=== PATIENT | female | born 1980 | race Caucasian/White ===

== ENCOUNTER 2024-11-08 08:30 | Outpatient (REF) | payer MEDICAID, SELFPAY ==
--- OUTSIDE RECORDS SUMMARY | 2024-11-07 17:00 | XMS_ITS | Encounter Summary ---
Author Organization [employer] Address [address] [facility] 7[address] [place] [address] Care Team Providers Care Noodle Maker Name Role Phone Unavailable Primary Care Provider Unavailabl e Encounter Details Date Type Department Care Team (Late st Contact Info) Description 11/07/2024 5:00 PM EDT Office Visit [facility] [address] [place] [address] Felicia Jack FNP [address] [place] [address] Pain and swelling of right elbow (Primary Dx); Dizziness; Palpitations Social History Tobacco Use Types Packs/Day Years Used Date Smoking Tobacco: Every Day Cigarettes 0.5 24.7 Started: 2000 Smokeless Tobacco: Never Tobacco Cessation:Ready to Q uit: Yes; Counseling Given: Yes Alcohol Use Standard Drinks/Week Comments Never 0 (1 standard drink = 0.6 oz pur e alcohol) Comments Unknown Sex and Gender Information Value Date Recorded Sex Assigned at Female 04/20/2023 9:20 AM EST Legal Sex Female 9:17 AM EST Gender Identity Female 04/20/2023 9:20 AM EST Sexual Orientation Choose not to disclose 2023 9:20 AM EST documented as of this encounter Last Filed Vital Signs Vital Sign Reading Time Taken Comments Blood Pressure 135/85 11/07/2024 4:48 PM EDT Pulse 76 11/07/2024 4:48 PM EDT Temperature 36.9 C (98.5 F) 11/07/2024 4:48 PM EDT Respiratory Rate 18 11/07/2024 4:48 PM EDT Oxygen Saturation 99% 11/07/2024 4:48 PM EDT Inhaled Oxygen Concentration - - Weight 45.5 kg (100 lb 6.4 oz) 11/07/2024 4:48 P M EDT Height 167.6 cm (5' 6 ) 11/07/2024 4:48 PM EDT Body Mass Index 16.2 11/07/2024 4:48 PM EDT documented in this encounter Progress Notes * Therese Holder RN - 11/07/2024 5:00 PM EDT Nurse Triage note: Pt arrives to walk in [place], states she has had dizzy spells x 3 weeks, accompanied by nausea and blurry vision. Also decreased appetite x several weeks. Last week, pt fell on herright arm during one of these spells, states she was in [place] visiting family at that time. States shewas seen in ED in [place], no Xrays taken of arm. * PETER Tabares - 11/07/2024 5:00 PM EDT Subjective Patient ID: Ashtyn Reyes is a 44 y.o. female. Ashtyn reports she was in [place] visiting her brother around 2 weeks ago. While there, she became dizzy, lost balance, her vision went blurry / fuzzy and she fell. After she fell, she hit her R elbow on her brother's kitchen chair. She is unsure if she had LOC. Since that time, she has been having pain, tingling and loss of ROM. She reports she had some swelling and bruising which has since resolved. She went to the hospital in [place] and had some blood work. She currently does not have a PCP and last seen by a medical provider was her ob-public policy professor 06/2024. She continues to have on and off dizziness, sometimes she feels her lip tingling. She reports she lost 20 lbs within the last month. She reports feeling shaky, getting sweaty, heart palpitations and dizziness which all come and go. Reports was told her H&H was low and she used to get Vit B shots which she felt were helpful. Denies recent head or neck trauma, no new medications, reports decreased appetite. Reports headacheafter dizziness and has nausea several times daily. Denies any chronic medical conditions. Dizziness Quality: Lightheadedness, vertigo, imbalance and room spinning Severity: Mild Onset quality: Sudden Duration: 2 weeks Timing: Intermittent Progression: Unchanged Chronicity: New Context: not with loss of consciousness Worsened by: Nothing Ineffective treatments: None tried Associated symptoms: diarrhea, nausea, palpitations and syncope Associated symptoms: no chest pain and no hearing loss Nausea: Severity: Mild Onset quality: Gradual Duration: 6 months Timing: Intermittent Progression: Waxing and waning Risk factors: no heart disease, no hx of stroke, no hx of vertigo, no multiple medications and no new medications Review of Systems Constitutional: Positive for appetite change, fatigue and unexpected weight change. Negative for fever. HENT: Negative for congestion, facial swelling, hearing loss, rhinorrhea, sinus pressure, sinus pain, sore throat and trouble swallowing. Eyes: Positive for visual disturbance. Negative for photophobia, pain, discharge, redness and itching. Respiratory: Negative. Cardiovascular: Positive for palpitations and syncope. Negative for chest pain. Gastrointestinal: Positive for constipation, diarrhea and nausea. Endocrine: Positive for cold intolerance. Negative for heat intolerance. Genitourinary: Negative. Musculoskeletal: Positive for joint swelling. Skin: Negative. Neurological: Positive for dizziness, tremors and syncope. Negative for facial asymmetry. Objective BP 135/85 (BP Cuff Size: Adult) Pulse 76 Temp 98.5 ??F (36.9 ??C) (Oral) Resp 18 Ht 5' 6 (1.676 m) Wt 100 lb 6.4 oz (45.5 kg) SpO2 99% BMI 16.20 kg/m?? Physical Exam Constitutional: Appearance: Normal appearance. HENT: Head: Normocephalic. Right Ear: External ear normal. Left Ear: External ear normal. Nose: Nose normal. Mouth/Throat: Mouth: Mucous membranes are moist. Eyes: Conjunctiva/sclera: Conjunctivae normal. Cardiovascular: Rate and Rhythm: Normal rate and regular rhythm. Heart sounds: Normal heart sounds. Pulmonary: Effort: Pulmonary effort is normal. Breath sounds: Normal breath sounds. Musculoskeletal: Right elbow: Swelling present. Decreased range of motion. Tenderness present. Left elbow: Normal. Cervical back: Normal range of motion and neck supple. Skin: General: Skin is warm and dry. Capillary Refill: Capillary refill takes less than 2 seconds. Neurological: Mental Status: She is alert and oriented to person, place, and time. Psychiatric: Mood and Affect: Mood normal. Behavior: Behavior normal. Thought Content: Thought content normal. Judgment: Judgment normal. Assessment/Plan Diagnoses and all orders for this visit: Pain and swelling of right elbow - XR Elbow 3+ Views Right; Future Plan pending results Dizziness Sit or lie down if start to feel dizzy Use a cane or walker to help balance if needed. Avoid changing positions quickly. When you wake up, sit up first, then get out of bed slowly. Ensure adequate food / fluid intake RTC if sx persist or worsen Please schedule for New Patient Appointment - Hemoglobin A1c - Ferritin; Future - Iron And Total Iron Binding Capacity; Future Palpitations EKG today - WNL Sinus rhythm P/NC: 94/170 ms QRS: 80 ms QT/Qtc: 396/372 ms P/QRS/T axis: 140/142/145 deg Heart rate: 53 bpm Red Flag symptoms reviewed RTC if sx persist or worsen - TSH W/Reflex to FT4; Future - T3, Total; Future - CBC auto differential - Vitamin D, 25-Hydroxy, Total, Immunoassay; Future - Albumin, Random Urine W/Creatinine; Future - Comprehensive Metabolic Panel; Future - ECG 12 lead - Ferritin; Future - Iron And Total Iron Binding Capacity; Future Other orders - acetaminophen (Tylenol Extra Strength) 500 MG tablet; Take 2 tablets (1,000 mg) by mouth every 6 (six) hours if needed for headaches, fever or moderate pain for up to 10 days. documented in this encounter Plan of Treatment Scheduled Orders Name Type Priority Associated Diagnoses Orde r Schedule Hemoglobin A1c Lab Routine Dizziness Ordered: 11/07/2024 TSH W/Reflex to FT4 Lab Routine Palpitations Expected: 11/07/2024 (Approximate), Expires: 11/07/2025 T3, Total Lab Routine Palpitations Expected: 11/07/2024 (Approximate), Expires: 11/07/2025 CBC auto differential Lab Routine Palpitations Ordered: 11/07/2024 Vitamin D, 25-Hydroxy, Total, Immunoassay Lab Routine Palpitations Expected: 11/07/2024 (Approximate), Expires: 11/07/2025 Albumin, Random Urine W/Creatinine Lab Routine Palpitations Expected: 11/07/2024 (Approximate), Expires: 11/07/2025 Comprehensive Metabolic Panel Lab Routine Palpitations Expected: 11/07/2024 (Approximate), Expires: 11/07/2025 ECG 12 lead ECG Routine Palpitations Ordered: 11/07/2024 Ferritin Lab Routine Dizziness Palpitations Expected: 11/07/2024, Expires: 11/07/2025 Iron And Total Iron Binding Capacity Lab Routine Dizziness Palpitations Expected: 11/07/2024, Expires: 11/07/2025 documented as of this encounter Procedures Procedure Name Priority Date/Time Associated Diagnosis Comments XR ELBOW 3+ VIEWS RIGHT Routine 11/08/2024 9:00 AM EDT Pain and swelling of right elbow ECG 12-LEAD Routine 11/07/2024 7:00 PM EDT Dizziness Palpitations documented in this encounter Results * XR Elbow 3+ Views Right (11/08/2024 9:00 AM EDT) Anatomical Region Laterality Modality Upper Extremities, Elbow Right Radiogr aphic Imaging 11/08/2024 9:00 AM EDT Narrative 11/08/2024 9:21 AM EDT [place] [address] XRay Report Signed Patient: Ashtyn Reyes MR#: [id number] : 1980 Acct:[id number] Age/Sex: 44 / F ADM Date: 11/08/24 Loc: HO.[facility] Attending Dr: Felicia Jack NP Ordering Physician: Felicia Jack NP Date of Service: 11/08/24 Procedure(s): XR elbow RT min 3V Accession Number(s): [id number] cc: Felicia Jack NP Reason for Exam: s/p fall, increase pain and loss of ROM EXAMINATION: XR ELBOW, RIGHT CLINICAL INFORMATION: s/p fall, increase pain and loss of ROM COMPARISON: None available. TECHNIQUE: AP, lateral, and oblique views of the right elbow. FINDINGS: The bones and soft tissues are normal. No fracture or joint effusion. Alignment is anatomic. Joint spaces are maintained. XR/XR elbow RT min 3V IMPRESSION: Normal right elbow. Electronically signed by: Yoandy Phillips MD 11/08/2024 09:18 AM EDT RP Dictated By: Yoandy Phillips MD Signed By: <Electronically signed by Yoandy Phillips MD in OV> 11/08/24917 DD/ 9 TD/TT: 11/08/24909 Radiography Technician: Procedure Note Donotuseinterpreter, Image - 11/08/[address] [address] XRay Report Signed Patient: Ashtyn ReyesMR#: [id number] : 1980Acct:[id number] Age/Sex: 44 / FADM Date: 11/08/24 Loc: [facility] Attending Dr: Felicia Jack AMBULANCE ASSISTANT Ordering Physician: Felicia Jack NP Date of Service: 11/08/24 Procedure(s): XR elbow RT min 3V Accession Number(s): [id number] cc: Felicia Jack NP Reason for Exam: s/p fall, increase pain and loss of ROM EXAMINATION: XR ELBOW, RIGHT CLINICAL INFORMATION: s/p fall, increase pain and loss of ROM COMPARISON: None available. TECHNIQUE: AP, lateral, and oblique views of the right elbow. FINDINGS: The bones and soft tissues are normal. No fracture or joint effusion. Alignment is anatomic. Joint spaces are maintained. XR/XR elbow RT min 3V IMPRESSION: Normal right elbow. Electronically signed by: Yoandy Phillips MD 11/08/2024 09:18 AM EDT RP Dictated By: Yoandy Phillips MD Signed By: <Electronically signed by Yoandy Phillips MD in OV> 11/08/24917 DD/ 9 TD/TT: 11/08/24909 Radiography Technician: Felciia Jack HEELER IMG XR PROCEDURES Final Result * ECG 12 lead (11/07/2024 7:00 PM EDT) Felicia Martinez FNP - 11/07/2024 7:00 PM EDT Sinus rhythm P/NC: 94/170 ms QRS: 80 ms QT/Qtc: 396/372 ms P/QRS/T axis: 140/142/145 deg Heart rate: 53 bpm Felicia GREEN ECG ORDERABLES Final Result documented in this encounter Visit Diagnoses Diagnosis Pain and swelling of right elbow- Primary Dizziness Dizziness and giddiness Palpitations documented in this encounter
--- NOTE | ~2024-11-08 | XR_ITS ---
EXAMINATION: XR ELBOW, RIGHT CLINICAL INFORMATION: s/p fall, increase pain and loss of ROM COMPARISON: None available. TECHNIQUE: AP, lateral, and oblique views of the right elbow. FINDINGS: The bones and soft tissues are normal. No fracture or joint effusion. Alignment is anatomic. Joint spaces are maintained. XR/XR elbow RT min 3V IMPRESSION: Normal right elbow. Electronically signed by: Yoandy Phillips MD 11/08/2024 09:18 AM EDT
--- OUTSIDE RECORDS SUMMARY | 2024-11-08 09:29 | XMS_ITS | Encounter Summary ---
Author Organization [employer] Address [address] [facility] 7t [place] [address] Care Team Providers Care Still Operator Gin Name Role Phone Unavailable Primary Care Provider Unavailabl e Encounter Details Date Type Department Care Team (Latest Contact Info) Description 11/07/2024 Travel Social History Tobacco Use Types Packs/Day Years Used Date Smoking Tobacco: Every Day Cigarettes 0.5 24.7 Started: 2000 Smokeless Tobacco: Never Alcohol Use Standard Drinks/Week Comments Never 0 (1 standard drink = 0.6 oz pur e alcohol) Comments Unknown Sex and Gender Information Value Date Recorded Sex Assigned at Female 04/20/2023 9:20 AM EST Legal Sex Female 9:17 AM EST Gender Identity Female 04/20/2023 9:20 AM EST Sexual Orientation Choose not to disclose 2023 9:20 AM EST documented as of this encounter Plan of Treatment Not on file documented as of this encounter Visit Diagnoses Not on filedocumented in this encounter
--- OUTSIDE RECORDS SUMMARY | 2024-11-08 09:29 | XMS_ITS | Clinical Summary ---
Author Organization [employer] Address [address] [facility] [address] [place] [address] Care Team Providers Care Vp Care Management Name Role Phone Unavailable Primary Care Provider Unavailabl e Allergies Active Allergy Reactions Criticality Noted Date Comments Amoxicillin Hives 11/07/2024 Codeine 01/04/2021 Penicillins 11/07/2024 Oxycodone-Acetaminophen 11/07/2024 Medications acetaminophen (Tylenol Extra Strength) 500 MG tablet Take 2 tablets (1,000 mg) by mouth every 6 (six) hours if needed for headaches, fever or moderate pain for up to 10 days. 30 tablet 11/07/2024 11/18/19 25 Active Encounters Date Type Department Care Team Description 11/07/2024 5:00 PM EDT Office Visit [facility] [address] [place] [id number] Felicia Jack FNP Pain and swelling of right elbow (Primary Dx); Dizziness; Palpitations 11/07/2024 Travel from Last 3 Months Social History Tobacco Use Types Packs/Day Years [...] not to disclose 2023 9:20 AM EST Last Filed Vital Signs Vital Sign Reading [...] Mass Index 16.2 11/07/2024 4:48 PM EDT Plan of Treatment Health Maintenance Due Date Last Done Comments Depression Screening 1980 HIV Screening 1980 Lipid Panel 1980 SDOH Screening 1982 Disability Screening 1982 Alcohol/Substance Use Screening 1994 Family Planning (PISQ) 1997 HPV Vaccines (1 - 3-dose series) 1997 Hepatitis C Screening 2000 DTaP/Tdap/Td Vaccines (1 - Tdap) 2001 Hepatitis B Vaccines (1 of 3 - 19+ 3-dose series) 2001 Pneumococcal Vaccine: Pediat rics (0 to 5 Years) and At-Risk Patients (6 to 49) Years (1 of 2 - PCV) 2001 Pap Smear 06/26/2003 Cervical Cancer Screening 2012 HPV/Cotest 2012 Mammogram 2022 COVID-19 Vaccine ( - 2023-2 5 season) 2024 Influenza Vaccine (#1) 2024 Tobacco Screening 11/07/2025 11/07/2024 Zoster Vaccines (1 of 2) 2032 RSV Patients and Pa tients Aged 60 years or older (1 - 1-dose 75+ series) 2057 HIB Vaccines Aged Out No longer eligi ble based on patient's age to complete this topic Hepatitis A Vaccines Aged Out No long er eligible based on patient's age to complete this topic IPV Vaccines Aged Out No longer eligi ble based on patient's age to complete this topic Meningococcal B Vaccine Aged Out No l onger eligible based on patient's age to complete this topic Meningococcal Vaccine Aged Out No pattie rebeka eligible based on patient's age to complete this topic RSV under 20 months Aged Out No longe r eligible based on patient's age to complete this topic Rotavirus Vaccines Aged Out No longer eligible based on patient's age to complete this topic Procedures Procedure Name Priority Date/Time Associated Diagnosis Comments XR ELBOW 3+ VIEWS RIGHT Routine 11/08/2024 9:00 AM EDT Pain and swelling of right elbow ECG 12-LEAD Routine 11/07/2024 7:00 PM EDT Dizziness Palpitations from Last 3 Months Results * XR Elbow 3+ Views Right (11/08/2024 9:00 AM EDT) Anatomical Region Laterality Modality Upper Extremities, Elbow Right Radiogr aphic Imaging 11/08/2024 9:00 AM EDT Narrative 11/08/2024 9:21 AM EDT [place] [address] XRay Report Signed Patient: Ashtyn Reyes MR#: [id number] : 1980 Acct:[id number] Age/Sex: 44 / F ADM Date: 11/08/24 Loc: HO.CL Attending Dr: Felicia Jack NP Ordering Physician: Felicia Jack NP Date of Service: 11/08/24 Procedure(s): XR elbow RT min 3V Accession Number(s): [id number] cc: Felicia Jack NP Reason for Exam: [...] Yoandy Phillips MD 11/08/2024 09:18 AM EDT Dictated By: Yoandy Phillips MD Signed By: <Electronically signed by Yoandy Phillips MD in OV> 11/08/24917 DD/ 9 TD/TT: 11/08/24909 Shearing Supervisor: Procedure Note Brandon, Image - 11/08/[address] [address] XRay Report Signed Patient: Ashtyn ReyesMR#: [id number] : 1980Acct:[id number] Age/Sex: 44 / FADM Date: 11/08/24 Loc: HO[facility] Attending Dr: Felicia Jack STAMP PRESSER Ordering Physician: Felicia Jack NP Date of Service: 11/08/24 Procedure(s): XR elbow RT min 3V Accession Number(s): [id number] cc: Felicia Jack NP Reason for Exam: [...] in OV> 11/08/24917 DD/ 9 TD/TT: 11/08/24909 Shearing Supervisor: Felicia GREEN IMG XR PROCEDURES Final Result * ECG 12 lead (11/07/2024 7:00 PM EDT) Narrative Felicia Jack FNP - 11/07/2024 7:00 PM EDT Sinus rhythm P/PA: 94/170 ms QRS: 80 ms QT/Qtc: 396/372 ms P/QRS/T axis: 140/142/145 deg Heart rate: 53 bpm Felicia Jack LABOR MEDIATOR ECG ORDERABLES Final Result from Last 3 Months Insurance [facility] [id number]
--- OUTSIDE RECORDS SUMMARY | 2024-11-08 09:30 | XMS_ITS | Clinical Summary ---
Author Organization [facility] Address [address] [place] [address] Phone Care Team Providers Care Diesel Technician Mechanic Name Role Phone Rajendra Cast Primary Care Provider [phone] Social History Tobacco Use Types Packs/Day Years Used Date Smoking Tobacco: Never Assessed Comments Unknown Sex and Gender Information Value Date Recorded Sex Assigned at Female 01/26/2020 10:49 AM EST Legal Sex Female 10:40 AM EST Gender Identity Female 01/26/2020 10:49 AM EST Sexual Orientation Straight 01/26/2020 10 :49 AM EST Plan of Treatment Not on file Medical Devices Not on file Insurance [facility] PCC [facility] PCC Care Teams Diesel Technician Mechanic Relationship Specialty Start Date End Date Rajendra Cast DO [address] [place] [id number] PCP - General Internal Medicine 01/26/20 Additional Source Comments The information contained in this document represents components of the legal health record. It is not the complete legal health record.[facility]
--- OUTSIDE RECORDS SUMMARY | 2024-11-08 09:30 | XMS_ITS | Patient Health Record ---
Author Organization [facility] Address [address] [place] [address] Support Name Relationship Address Phone SergeAshtyn Guarantor Unknown Unavai lable Allergies No Known Allergies Reason For Referral No Information Social History Tobacco Use: Social History Observation Description Date Details (start date - stop date) Never Smoker NA - NA Tobacco Control (Standard) Question Answer Notes Tobacco use: Nonsmoker Plan Of Treatment No Information Insurance Providers Payer Name Payer Address Payer Phone Subscriber Number Group Number Insured Name Patient Relationship to Insured Coverage Start Date Coverage End Date [employer] [address] [place] [address] [phone] [id number] Shefali wilburn Ashtyn Self - patient is the insured Medical (General) History Medical History History ICD Code denies Surgical History Surgery Date(Month/Year) Appendix 06/01/2023 Hospitalization History Reason Date(Month/Year) see above
--- OUTSIDE RECORDS SUMMARY | 2024-11-08 09:30 | XMS_ITS | Clinical Summary ---
Author Organization [facility] [address] [place] [address] [place] [address] Phone Care Team Providers Care Stitch Bonding Machine Operator Name Role Phone Vijay Wheatley MD Primary Care Provider [phone] Allergies Active Allergy Reactions Criticality Noted Date Comments Codeine 01/04/2021 Hydrocodone-Acetaminophen 01/22/2021 Penicillins 01/22/2021 Medications No known medications Active Problems Problem Noted Date Diagnosed Date Spondylosis of lumbar region without myelopathy or radiculopathy 06/26/2023 Severe malnutrition (CMS/HCC V24) 02/04/2023 Irritable bowel syndrome 01/31/2022 Malnutrition (CMS/HCC V24) 01/31/2022 Stress headache 01/31/2022 Tendinitis of left rotator cuff 01/31/2022 PTSD (post-traumatic stress disorder) 01/22/2021 Bipolar depression (CMS/HCC V24, CMS/HCC V28) Chronic low back pain 01/22/2021 Insomnia 01/22/2021 Anxiety and depression 01/04/2021 Constipation 01/04/2021 GERD (gastroesophageal reflux disease) Gastroparesis 01/04/2021 Overview (02/04/2024): Unclear etiology dx in [place] Decreased appetite 01/04/2021 Rotator cuff disorder, left 01/04/2021 Unintentional weight loss 01/04/2021 Encounters Date Type Department Care Team Description 08/08/2024 Telephone Adult Medicine [facility] [address] [place] [address] Vijay Wheatley MD from Last 3 Months Surgical History Surgery Date Site/Laterality Comments CHOLECYSTECTOMY PROCEDURE: HISTORICAL CHOLECYSTECTOMY SECTION PROCEDURE: [place] DELIVERY ONLY TUBAL LIGATION PROCEDURE: HISTORICAL TUBAL LIGATION OTHER SURGICAL HISTORY PROCEDURE: HISTORY OTHER; COMMENT: uterine ablation Medical History Medical History Date Comments PTSD (post-traumatic stress disorder) 01/22/2021 DX:PTSD (post-traumatic stress disorder) Bipolar depression (CMS/HCC V24, CMS/HCC V28) 01/22/2021 DX:Bipolar depression (HCC) Insomnia 01/22/2021 DX:Insomnia BMI less than 19,adult 01/04/2021 DX:BMI le ss than 19,adult Anxiety 01/04/2021 DX:Anxiety Gastroparesis 01/04/2021 DX:Gastroparesis ; COMMENT: Unclear etiology dx in [place] GERD (gastroesophageal reflux disease) DX:GERD (gastroesophageal reflux disease) Rotator cuff disorder, left 01/04/2021 DX:R otator cuff disorder, left Tobacco abuse 01/04/2021 DX:Tobacco abuse Unintentional weight loss 01/04/2021 DX:Uni ntentional weight loss Alternating constipation and diarrhea 01/04/2021 DX:Alternating constipation and diarrhea Chronic low back pain 01/22/2021 DX:Chronic low back pain Decreased appetite 01/04/2021 DX:Decreased appetite Family History Medical History Relation Name Comments Other: IBS Brother 1 Other: IBS Father Diabetes Maternal Grandfather HTN, CA D Diabetes Maternal Grandmother HTN, [place] D, Ovarian [place] Diabetes Mother Other: IBS Mother anxiety, HTN Relation Name Status Comments Brother 1 Alive Brother 2 Alive Father Alive Maternal Grandfather Maternal Grandmother Mother Alive Social History Tobacco Use Types Packs/Day Years Used Date Smoking Tobacco: Former Cigarettes Smokeless Tobacco: Former Comments No Sex and Gender Information Value Date Recorded Sex Assigned at Not on file Legal Sex Female 3:08 PM EST Gender Identity Not on file Sexual Orientation Not on file Obstetrics History Last Filed Vital Signs Vital Sign Reading Time Taken Comments Blood Pressure 114/51 03/21/2024 1:03 PM EST Pulse 78 03/21/2024 1:03 PM EST Temperature 36.9 C (98.5 F) 03/21/2024 1:03 PM EST Respiratory Rate 14 03/21/2024 1:03 PM EST Oxygen Saturation - - Inhaled Oxygen Concentration - - Weight 45.4 kg (100 lb) 03/21/2024 1:03 PM EST Height 167.6 cm (5' 6 ) 03/21/2024 1:03 PM EST Body Mass Index 16.14 03/21/2024 1:03 PM EST Plan of Treatment Health Maintenance Due Date Last Done Comments Breast Cancer Screening 1982 DTaP,Tdap,and Td Vaccines (1 - Tdap) 2001 Hepatitis B Vaccines (1 of 3 - 19+ 3-dose series) 2001 HIV Screening 01/26/2022 Hepatitis C Screening 01/26/2022 Social Influencers of Health Screening 01/26/2022 Depression Screening 02/17/2024 06/26/2023 COVID-19 Vaccine ( - 2023-2 5 season) 2024 Influenza Vaccine (#1) 2024 Cholesterol Screening (Lipid Panel) 01/04/2026 01/04/2021 Cervical Cancer Screening: P ap Smear 02/13/2026 02/13/2023 RSV Immunization Adult Patie nts (1 - 1-dose 75+ series) 2057 HIB Vaccines Aged Out No longer eligi ble based on patient's age to complete this topic HPV Vaccines Aged Out No longer eligi ble based on patient's age to complete this topic Hepatitis A Vaccines Aged Out No long er eligible based on patient's age to complete this topic IPV Vaccines Aged Out No longer eligi ble based on patient's age to complete this topic MMR Vaccines Aged Out No longer eligi ble based on patient's age to complete this topic Meningococcal ACWY Vaccine Aged Out N o longer eligible based on patient's age to complete this topic Meningococcal B Vaccine Aged Out No l onger eligible based on patient's age to complete this topic Pneumococcal Vaccine: Pediat rics (0 to 5 Years) and At-Risk Patients (6 to 49 Years) Aged Out No longer eligi ble based on patient's age to complete this topic RSV Immunization Patients Un trell 20 months Aged Out No longer eligible b ased on patient's age to complete this topic Varicella Vaccines Aged Out No longer eligible based on patient's age to complete this topic Procedures Procedure Name Priority Date/Time Associated Diagnosis Comments HM DEPRESSION SCREENING Routine 06/26/2023 PAP SMEAR Routine 02/13/2023 LIPID PANEL Routine 01/04/2021 from Last 3 Months or Most Recently Relevant to Health Maintenance Results * Depression Screening (06/26/2023) Depression Screening abstracted [facility] Provider MD HEALTH MAINTENANCE Final Result * Pap Smear (02/13/2023) Pap smear no interpretation , abstracted [facility] Provider MD HEALTH MAINTENANCE Final Result * Lipid panel (01/04/2021) LDL/HDL Ratio 3 0 - 4 Triglycerides 101 0 - 150 mg/dL Cholesterol 171 0 - 200 mg/dL HDL 64 >=40 mg/dL LDL Cholesterol 87 0 - 100 mg/dL Blood Venous blood specimen / Unknown [facility] Provider LAB BLOOD ORDERABLES Ledy l Result from Last 3 Months or Most Recently Relevant to Health Maintenance Insurance MEDICA[place] - [place] [facility] Care Teams Stitch Bonding Machine Operator Relationship Specialty Start Date End Date Vijay Wheatley MD [address] [place] [address] PCP - General Internal Medicine 08/21/21
--- OUTSIDE RECORDS SUMMARY | 2024-11-08 09:30 | XMS_ITS ---
Author Name [facility] Organization Unknown Care Team Organization Name Specialty Phone Email Start Date End Da te [facility] Vijay Wheatley Primary Care 04/23/202209/16 [facility] Jenni Bautista Primary Care 12/24/20212023
[2024-11-08 11:35] LABS: MANUAL DIFF FLAG NO
[2024-11-08 11:44] LABS: Hematocrit 40.9 % (37.0-47.0); Hemoglobin 13.8 g/dl (12.0-16.0); Imm Gran Abs Auto 0.01 X10*3/uL (0.00-0.03); Imm Gran Pct Auto 0.2 % (0.0-0.4); Lymphocytes Absolute Auto 1.4 X10*3/uL (1.2-4.9); Mean Corpuscular HGB Conc 33.7 g/dl (31.0-35.0); Mean Corpuscular Hemoglobin 32.9 pg (27.0-33.0); Mean Corpuscular Volume 97.6 fL (80.0-98.0); NRBC Abs Auto 0.000 X10*3/uL (0.0-0.012); NRBC Pct Auto 0.0 /100WBC (0.0-0.2); Platelet Count 174 X10*3/uL (160-400); Red Blood Count 4.19 X10*6/uL (4.20-5.50); White Blood Count 4.4 X10*3/uL (4.8-10.8)
[2024-11-08 11:52] LABS: Hemoglobin A1C 121.7980 umol/L; Total Hemoglobin (HGBA1C) 3587.5110 umol/L
[2024-11-08 12:57] LABS: Ferritin 68 ng/mL (10-250)
[2024-11-08 13:06] LABS: Anion Gap 12 (12-20)
[2024-11-08 13:11] LABS: Alanine Aminotransferase 12 U/L (0-31); Albumin Level 5.1 g/dL (3.5-5.0); Alkaline Phosphatase 42 U/L (39-117); Aspartate Amino Transferase 17 U/L (5-31); Blood Urea Nitrogen 13 mg/dL (9-16); Calcium 9.8 mg/dL (8.4-10.2); Carbon Dioxide 29 mmol/L (22-29); Chloride 106 mmol/L (96-108); Estimated Glomerular Filt Rate > 60; Iron 122 mcg/dL (30-160); Percent Iron Saturation 45 % (15-50); Potassium 4.5 mmol/L (3.3-5.1); Sodium 142 mmol/L (135-145); Total Iron Binding Capacity 272 mcg/dL (228-428); Total Protein 7.4 g/dL (6.5-8.0); Unsaturated Iron Binding 150 ug/dL
[2024-11-08 14:18] LABS: Microalbum/Creatinine Ratio Ur 9.6 ug/mg cr (<30)
== END 2024-11-08 08:31 | disposition home or self-care (01) ==
LOC: HO.HHCL 08:30
PROVIDERS: PCP Nurse Practitioner Family; Visit Provider Nurse Practitioner Family
DX: R55 Syncope and collapse (principal); R42 Dizziness and giddiness; M25.521 Pain in right elbow; M25.421 Effusion, right elbow
CPT/HCPCS: 36415; 73080; 80053; 82043; 82306; 82570; 82728; 83036; 83540; 84443; 84480; 85025

== ENCOUNTER → 2024-11-08 08:39 | Outpatient (BNV) | payer MEDICAID, SELFPAY | PROVIDERS: PCP Nurse Practitioner Family; Visit Provider Radiology Diagnostic Radiology | DX: M25.521 Pain in right elbow (principal) | CPT/HCPCS: 73080 ==

== ENCOUNTER 2024-12-06 12:16 | Outpatient (REF) | payer MEDICAID, SELFPAY ==
--- OUTSIDE RECORDS SUMMARY | 2024-12-06 10:15 | XMS_ITS | Encounter Summary ---
Author Organization [employer] Address [address] [place] [address] [address] [place] [address] Care Team Providers Care [employer]cies Supervisor Name Role Phone Sunday Oneill MD Primary Care Prov ider Reason for Referral * Imaging (Routine) - Authorized Specialty Diagnoses / Procedures Referred By Cristo salazar Referred To Contact Radiology Diagnoses Chronic abdominal pain Procedures US Abdomen Complete Sunday Oneill MD [address] [place] [address] Phone: tel: fax: [address] Phone: tel: fax: Referral ID Status Reason Start Date Expiration Date V isits Requested Visits Authorized [id number] Authorized 12/06/2024 12/06/2025 1 1 * Imaging (Routine) - Closed Specialty Diagnoses / Procedures Referred By Crisot salazar Referred To Contact Radiology Diagnoses Encounter for screening mammogram for malignant neoplasm of breast Procedures BI Mammogram Screening Tomosynthesis Bilateral Sunday Oneill MD [address] [place] [address] Phone: tel: fax: [address] Phone: tel: fax: Referral ID Status Reason Start Date Expiration Date Visits Re quested Visits Authorized [id number] Closed 12/06/2024 12/06/2025 1 1 Encounter Details Date Type Department Care Team ([facility] st Contact Info) Description 12/06/2024 10:15 AM EDT Office Visit [facility] [address] [place] [address] Sunday Oneill MD [address] [place] [address] Dizziness (Primary Dx); Encounter for screening mammogram for malignant neoplasm of breast; Chronic abdominal pain; Poor appetite Social History Tobacco Use Types Packs/Day Years Used Date Smoking Tobacco: Every Day Cigarettes 0.5 24.8 Started: 2000 Smokeless Tobacco: Never Alcohol Use Standard Drinks/Week Comments Never 0 (1 standard drink = 0.6 oz pur e alcohol) Depression Answer Date Recorded Patient Health Questionnaire-9 Score 0 11/14/2024 Patient Health Questionnaire-9 Score 0 11/14/2024 Last PHQ-9: Questionnaire Data Not on file 0 11/14/2024 Housing Stability Answer Date Recorded What is your housing situation today? I have steffany painter 11/14/[address] you li ve. Do you have problems with any of the following? None of the above 11/14/2024 Food Insecurity Answer Date Recorded Within the past 12 months, y ou worried that your food would run out before you got money to buy more: Never True 11/14/2024 Within the past 12 months,th e food you bought just didn't last and you didn't have enough money to get more: Never True Transportation Answer Date Recorded In the past 12 months, has l ack of transportation kept you from medical appts, meetings, work or from getting things needed for daily living? No 11/14/2024 Utilities Answer Date Recorded In the past 12 months, has t he electric, gas, oil or water company threatened to shut off services in your home? No 11/14/2024 Depression Answer Date Recorded Patient Health Questionnaire-2 Score 0 11/14/2024 Internet Access Answer Date Recorded Internet Access Q1 Yes 11/14/2024 Internet Access Q2 Not on file 11/14/2024 Comments Unknown Sex and Gender Information Value Date Recorded Sex Assigned at Female 04/20/2023 9:20 AM EST Legal Sex Female 9:17 AM EST Gender Identity Female 04/20/2023 9:20 AM EST Sexual Orientation Choose not to disclose 2023 9:20 AM EST documented as of this encounter Last Filed Vital Signs Vital Sign Reading Time Taken Comments Blood Pressure 122/70 12/06/2024 11:04 AM EDT Pulse 100 12/06/2024 11:04 AM EDT Temperature 36.9 C (98.4 F) 12/06/2024 11:04 AM EDT Respiratory Rate 20 12/06/2024 11:04 AM EDT Oxygen Saturation - - Inhaled Oxygen Concentration - - Weight 45.5 kg (100 lb 3.2 oz) 12/06/2024 11:04 AM EDT Height 162.6 cm (5' 4 ) 12/06/2024 11:04 AM EDT Body Mass Index 17.2 12/06/2024 11:04 AM EDT documented in this encounter Progress Notes * Manjula Polanco MA - 12/06/2024 10:15 AM EDT * Sunday Barry MD - 12/06/2024 10:15 AM EDT Subjective Patient ID: Ashtyn Reyes is a 44 y.o. female who presents for No chief complaint on file.. HPI Patient was seen on office for follow up on chronic abdominal pain Review of Systems Constitutional: Negative for chills, fatigue and fever. Respiratory: Negative for cough and shortness of breath. Cardiovascular: Negative for chest pain and palpitations. Objective Physical Exam Constitutional: Appearance: Normal appearance. Cardiovascular: Rate and Rhythm: Normal rate and regular rhythm. Heart sounds: No murmur heard. Pulmonary: Effort: Pulmonary effort is normal. No respiratory distress. Breath sounds: Normal breath sounds. No stridor. No wheezing or rhonchi. Abdominal: General: Abdomen is flat. There is no distension. Palpations: There is no mass. Tenderness: There is no guarding or rebound. Neurological: General: No focal deficit present. Mental Status: She is alert and oriented to person, place, and time. Psychiatric: Mood and Affect: Mood normal. Behavior: Behavior normal. Assessment/Plan Problem List Items Addressed This Visit Chronic abdominal pain Pending Gi evaluation, she refers was diagnosed with gastroparesis on around 4 years ago on [place]. Relevant Orders US Abdomen Complete Dizziness - Primary Patient complains of dizziness, abdominal pain sweating, could be related to low glucose levels, will order further test Relevant Orders CBC auto differential Insulin Insulin Autoantibody C-Peptide IA-2 Antibody Beta-Hydroxybutyrate Poor appetite Will send ensure Other Visit Diagnoses Encounter for screening mammogram for malignant neoplasm of breast Relevant Orders BI Mammogram Screening Tomosynthesis Bilateral documented in this encounter Miscellaneous Notes * Assessment & Plan Note - Sunday Barry MD - 12/06/2024 12:44 PM EDTAssociated Problem(s): Poor appetite Will send ensure * Assessment & Plan Note - Sunday Barry MD - 12/06/2024 12:43 PM EDTAssociated Problem(s): Dizziness Patient complains of dizziness, abdominal pain sweating, could be related to low glucose levels, will order further test * Assessment & Plan Note - Sunday Barry MD - 12/06/2024 12:42 PM EDTAssociated Problem(s): Chronic abdominal pain Pending Gi evaluation, she refers was diagnosed with gastroparesis on around 4 years ago [place]. documented in this encounter Plan of Treatment Scheduled Orders Name Type Priority Associated Diagnoses Orde r Schedule Insulin Autoantibody Lab Routine Dizziness Expected: 12/06/2024 (Approximate), Expires: 12/06/2025 C-Peptide Lab Routine Dizziness Expected: 12/06/2024 (Approximate), Expires: 12/06/2025 IA-2 Antibody Lab Routine Dizziness Expected: 12/06/2024 (Approximate), Expires: 12/06/2025 BI Mammogram Screening Tomosynthesis Bilateral Imaging Routine Encounter for screening mammogram for malignant neoplasm of breast Expected: 12/06/2024, Expires: 02/05/2026 US Abdomen Complete Imaging Routine Chronic abdominal pain Expected: 12/06/2024, Expires: 12/06/2025 documented as of this encounter Procedures Procedure Name Priority Date/Time Associated Diagnosis Comments BETA-HYDROXYBUTYRATE Routine 12/06/2024 12:19 PM EDT Dizziness INSULIN Routine 12/06/2024 12:19 PM EDT Dizziness CBC WITH AUTO DIFFERENTIAL Routine 12/06/2024 12:09 PM EDT Dizziness documented in this encounter Results * Beta-Hydroxybutyrate (12/06/2024 12:19 PM EDT) Beta-Hydroxybut yrate 0.16 0.02 - 0.27 mmol/L [facility] Blood Venous blood specimen / Unknown 12/06/2024 12:19 PM EDT 12/06/2024 2:21 PM EDT Sunday Barry MD LAB BLOOD ORDERABL ES Final Result [facility] [address] [place] [phone] * Insulin (12/06/2024 12:19 PM EDT) Insulin 2 2 - 29 uU/mL [facility] Comment:This test was perfor med using the Mcgee chemiluminescentmethod. Values obtained from different assay methods cannot beused interchangeably. This insulin assay shows a possiblecross-reactivity with antibodies generated against insulin(immunoreactive insulin and some patients treated withbovine or porcine insulin). Insulin levels may be measuredlower in patients with insulin autoimmune syndrome orfamilial high pro-insulinemia. Blood Venous blood specimen / Unknown 12/06/2024 12:19 PM EDT 12/06/2024 2:21 PM EDT us Sunday Barry MD LAB BLOOD ORDERABL ES Final Result [facility] [address] [place] [address] [phone] * (ABNORMAL) CBC auto differential (12/06/2024 12:09 PM EDT) White Blood Count 5.3 4.8 - 10.8 X10*3/uL [facility] Red Blood Count 4.04(L) 4.20 - 5.50 X10*6/uL [facility] Hemoglobin 13.3 12.0 - 16.0 g/dl [facility] Hematocrit 38.5 37.0 - 47.0 % [facility] Mean Corpuscular Volume 95.3 80.0 - 98.0 fL [facility] Mean Corpuscular Hemoglobin 32.9 27.0 - 33.0 pg [facility] Mean Corpuscular HGB Conc 34.5 31.0 - 35.0 g/dl [facility] Red Cell Distribution Width 12.6 11.0 - 16.0 % [facility] Platelet Count 158(L) 160 - 400 X10*3/uL [facility] Mean Platelet Volume 12.7(H) 9.4 - 12.3 fL [facility] Neutrophils Percent Auto 61.1 45 - 73 % [facility] Imm Gran Pct Auto 0.4 0.0 - 0.4 % [facility] Lymphocytes Percent Auto 29.6 20 - 40 % [facility] Monocytes Percent Auto 7.2 2 - 11 % [facility] Eosinophils Percent Auto 0.8 0 - 4 % [facility] Basophils Percent Auto 0.9 0 - 2 % [facility] NRBC Pct Auto 0.0 0.0 - 0.2 /100WBC [facility] Neutrophils Absolute Auto 3.2 2.0 - 8.3 x10*3/uL [facility] Imm Gran Abs Auto 0.02 0.00 - 0.03 X10*3/uL [facility] Lymphocytes Absolute Auto 1.6 1.2 - 4.9 X10*3/uL [facility] Monocytes Absolute Auto 0.4 0.1 - 1.2 X10*3/uL [facility] Eosinophils Absolute Auto 0.0 0.0 - 0.4 X10*3/uL [facility] Basophils Absolute Auto 0.1 0.0 - 0.2 X10*3/uL [facility] NRBC Abs Auto 0.000 0.0 - 0.012 X10*3/uL [facility] Blood Venous blood specimen / Unknown 12/06/2024 12:09 PM EDT 12/06/2024 2:44 PM EDT us Sunday Barry MD LAB BLOOD ORDERABL ES Final Result [facility] [address] [place] [phone] documented in this encounter Visit Diagnoses Diagnosis Dizziness- Primary Dizziness and giddiness Encounter for screening mammogram for malignant neoplasm of breast Chronic abdominal pain Abdominal pain, unspecified site Poor appetite Anorexia documented in this encounter Additional Health Concerns Assessment Noted Time PHQ-9 Depression Total Score: 0 11/15/19 25 10:52 AM EDT documented as of this encounter Care Teams [employer] Supervisor Relationship Specialty Start Date End Date Sunday Oneill MD [address] [place] [phone] PCP - General Internal Medicine 11/14/24 documented as of this encounter
[2024-12-06 14:48] LABS: MANUAL DIFF FLAG NO
[2024-12-06 14:53] LABS: Hematocrit 38.5 % (37.0-47.0); Hemoglobin 13.3 g/dl (12.0-16.0); Imm Gran Abs Auto 0.02 X10*3/uL (0.00-0.03); Imm Gran Pct Auto 0.4 % (0.0-0.4); Lymphocytes Absolute Auto 1.6 X10*3/uL (1.2-4.9); Mean Corpuscular HGB Conc 34.5 g/dl (31.0-35.0); Mean Corpuscular Hemoglobin 32.9 pg (27.0-33.0); Mean Corpuscular Volume 95.3 fL (80.0-98.0); NRBC Abs Auto 0.000 X10*3/uL (0.0-0.012); NRBC Pct Auto 0.0 /100WBC (0.0-0.2); Platelet Count 158 X10*3/uL (160-400); Red Blood Count 4.04 X10*6/uL (4.20-5.50); White Blood Count 5.3 X10*3/uL (4.8-10.8)
--- OUTSIDE RECORDS SUMMARY | 2024-12-06 15:49 | XMS_ITS | Encounter Summary ---
Author Organization [employer] Address [address] [facility] 7 [place] [address] Care Team Providers Care Experimental Preflight Mechanic Name Role Phone Sunday Oneill MD Primary Care Prov ider Reason for Visit * Reason Onset Date Comments Chart Prep 12/05/2024 Encounter Details Date Type Department Care Team ([facility] st Contact Info) Description 12/05/2024 Telephone [facility] [address] [place] [address] Sunday Oneill MD [address] [place] [address] Chart Prep Social History Tobacco Use Types Packs/Day Years [...] AM EST documented as of this encounter Miscellaneous Notes * Telephone Encounter - Valerie Nuno MA - 12/05/2024 2:35 PM EDT Chart Prep Labs: done Images: done Referrals: appointment pending Vaccines due: due Screenings: mammogram, pap smear, STI screening, and PISQ Overdue care gaps: Not applicable documented in this encounter Plan of Treatment Not on file documented as of this encounter Visit Diagnoses Not on filedocumented in this encounter Additional Health Concerns Assessment Noted Time PHQ-9 Depression Total Score: 0 11/15/19 10:52 AM EDT documented as of this encounter Care Teams Experimental Preflight Mechanic Relationship Specialty Start Date End Date Sunday Oneill MD [address] [place] [address] PCP - General Internal Medicine 11/14/24 documented as of this encounter
--- OUTSIDE RECORDS SUMMARY | 2024-12-06 15:49 | XMS_ITS | Encounter Summary ---
Author Organization [employer] Address [address] [facility] [address] [place] [address] Care Team Providers Care Surveyor Hydrographic Name Role Phone Sunday Oneill MD Primary Care Prov ider Encounter Details Date Type Department Care Team ([facility] st Contact Info) Description 11/30/2024 Results Follow-Up [facility] [address] [place], [place] [phone] Consuelo Roy RN [address] [place] [address] Hemoglobin A1c, CBC auto differential, TSH W/Reflex to FT4, Additional followed-up results: 6 Social History Tobacco Use Types Packs/Day Years [...] your housing situation today? I have steffany inocencio 11/14/[address] you li [...] documented as of this encounter Care Teams Surveyor Hydrographic Relationship Specialty Start Date End Date Sunday Oneill MD [address] [place] [phone] PCP - General Internal Medicine 11/14/24 documented as of this encounter
--- OUTSIDE RECORDS SUMMARY | 2024-12-06 15:49 | XMS_ITS | Encounter Summary ---
Author Organization [employer] Address [address] [facility] [address]t [place] [address] Care Team Providers Care Web Development Director Name Role Phone Sunday Oneill MD Primary Care Prov ider Encounter Details Date Type Department Care Team ([facility] st Contact Info) Description 12/06/2024 Population Health Risk Score [facility] (C[facility]) Department [address] [phone] Provider, Population Health Generic Social History Tobacco Use Types Packs/Day Years [...] documented as of this encounter Care Teams Web Development Director Relationship Specialty Start Date End Date Sunday Oneill MD [address] [place] [phone] PCP - General Internal Medicine 11/14/24 documented as of this encounter
--- OUTSIDE RECORDS SUMMARY | 2024-12-06 15:49 | XMS_ITS | Clinical Summary ---
Author Organization [employer] Address [address] [facility] 7t [place] [address] Care Team Providers Care Garden Implement Mechanic Name Role Phone Sunday Oneill MD Primary Care Prov ider Allergies Active Allergy Reactions Criticality Noted Date Comments Amoxicillin Hives 11/07/2024 Codeine 01/04/2021 Penicillins 11/07/2024 Oxycodone-Acetaminophen 11/07/2024 Medications Nutritional Supplements (Ensure) Take 1 Bottle by mouth 2 times daily. 237 mL 12 5 12/07/19 26 Active acetaminophen (Tylenol Extra Strength) 500 MG tablet Take 2 tablets (1,000 mg) by mouth every 6 (six) hours if needed for headaches, fever or moderate pain for up to 10 days. 30 tablet 5 11/18/19 25 Active Problems Problem Noted Date Diagnosed Date Dizziness 12/06/2024 Assessment & Plan (12/06/2024 12:43 PM EDT): Patient complains of dizziness, abdominal pain sweating, could be related to low glucose levels, will order further test Poor appetite 12/06/2024 Assessment & Plan (12/06/2024 12:44 PM EDT): Will send ensure Chronic abdominal pain 11/16/2024 Assessment & Plan (12/06/2024 12:42 PM EDT): Pending Gi evaluation, she refers was diagnosed with gastroparesis on around 4 [place] ago on [place]. Assessment & Plan (11/16/2024 2:24 PM EDT): Patient previously seen at [facility], she refers constant nausea/lack of appetitte, diarrhea, will refer to GI for follow up and evaluation Bipolar depression ([facility]) 11/16/2024 Encounter for medical examination to establish c are 11/14/2024 Assessment & Plan (11/14/2024 11:21 AM EDT): Last pcp visit over 6 months ago ER: fall/dizziness, Hospitalization: - PMHX: gastroparesis, IBS, Pshx: gallblader 2006, appendectomy 2023, csec x2 [phone], uteral ablation 2019, tubal ligation 2019 All: percocet, vicodin, amoxicillin Meds: - A3 LMP: 2020 Encounters Date Type Department Care Team Description 12/06/2024 10:15 AM EDT Office Visit [facility] [address] [place] [address] Sunday Oneill MD Dizziness (Primary Dx); Encounter for screening mammogram for malignant neoplasm of breast; Chronic abdominal pain; Poor appetite 12/06/2024 Orders Only GENERIC EXTERNAL DATA DEPARTMENT Provider, Generic External Data 12/06/2024 Refill [facility] [address] [place] [address] Sunday Oneill MD 12/06/2024 Travel 12/06/2024 Population Health Risk Score [facility] (C3) Department [address] [phone] Provider, Population Health Generic 12/05/2024 Telephone [facility] [address] [place] [address] Sunday Oneill MD Chart Prep 11/30/2024 Results Follow-Up [facility] [address] [place] [address] Consuelo Roy, PATRICIA Hemoglobin A1c, CBC auto differential, TSH W/Reflex to FT4, Additional followed-up results: 6 11/23/2024 Telephone [facility] [address] [place] [address] Sunday Oneill MD RV 11/18/2024 Telephone [facility] [address] [place] [address] Sunday Oneill MD 11/15/2024 Telephone [facility] [address] [place] [address] Sunday Oneill MD Xr order 11/14/2024 10:45 AM EDT Telemedicine [facility] [address] [place] [address] Sunday Oneill MD Encounter for medical examination to establish care (Primary Dx); Chronic abdominal pain; Bipolar depression (CMS/HCC); Dietary counseling; Exercise counseling 11/14/2024 Telephone [facility] [address] [place] [address] Sunday Oneill MD Appointment Request 11/14/2024 Travel 11/09/2024 Travel 11/08/2024 Telephone [facility] [address] [place] [phone] Felicia Jack FNP Results 11/07/2024 5:00 PM EDT Office Visit [facility] [address] [place] [address] Felicia Jack FNP Pain and swelling of right elbow (Primary Dx); Dizziness; Palpitations 11/07/2024 Travel from Last 3 Months Family History Medical History Relation Name Comments Hyperlipidemia Father htn Father Leukemia Father's Brother Hypertension Mother Irritable bowel syndrome Mother Ovarian cancer Mother's Sister Relation Name Status Comments Father Father's Brother Mother Mother's Sister Social History Tobacco Use Types Packs/Day Years Used Date Smoking Tobacco: Every Day Cigarettes 0.5 24.8 Started: 2000 Smokeless Tobacco: Never Tobacco Cessation:Ready [...] 20 12/06/2024 11:04 AM EDT Oxygen Saturation 99% 11/07/2024 4:48 PM EDT Inhaled Oxygen Concentration - - Weight 45.5 kg (100 lb 3.2 oz) 12/06/2024 11:04 AM EDT Height 162.6 cm (5' 4 ) 12/06/2024 11:04 AM EDT Body Mass Index 17.2 12/06/2024 11:04 AM EDT Plan of Treatment Health Maintenance Due Date Last Done Comments HIV Screening 1982 Lipid Panel 1982 Family Planning (PISQ) 1997 HPV Vaccines (1 - 3-dose series) 1997 Hepatitis C Screening 2000 DTaP/Tdap/Td Vaccines (1 - Tdap) 2001 Hepatitis B Vaccines (1 of 3 - 19+ 3-dose series) 2001 Pneumococcal Vaccine: Pediatrics (0 to 5 Years) and At-Risk Patients (6 to 49) Years (1 of 2 - PCV) 2001 Pap Smear 06/26/2003 Cervical Cancer Screening 2012 HPV/Cotest 2012 Mammogram 2022 COVID-19 Vaccine (1 - 2023-2 5 season) 2024 Influenza Vaccine (#1) 2024 Alcohol/Substance Use Screening 11/14/2025 11/14/2024 Depression Screening 11/14/2025 11/14/2024, 11/14/2024 Disability Screening 11/14/2025 11/14/2024 SDOH Screening 11/14/2025 11/14/2024 Tobacco Screening 11/16/2025 11/16/2024 Zoster Vaccines (1 of 2) 2032 RSV Patients and Patients Aged 60 years or older (1 - [...] Procedure Name Priority Date/Time Associated Diagnosis Comments HOLD GREEN GEL Routine 12/06/2024 12:19 PM EDT BETA-HYDROXYBUTYRATE Routine 12/06/2024 12:19 PM EDT Dizziness INSULIN Routine 12/06/2024 12:19 PM EDT Dizziness CBC WITH AUTO DIFFERENTIAL Routine 12/06/2024 12:09 PM EDT Dizziness IRON AND TOTAL IRON BINDING CAPACITY Routine 11/08/2024 9:08 AM EDT Dizziness Palpitations FERRITIN Routine 11/08/2024 9:08 AM EDT Dizziness Palpitations COMPREHENSIVE METABOLIC PANEL Routine 11/08/2024 9:08 AM EDT Palpitations ALBUMIN, RANDOM URINE W/CREATININE Routine 11/08/2024 9:08 AM EDT Palpitations VITAMIN D,25-OH,TOTAL,IA Routine 11/08/2024 9:08 AM EDT Palpitations T3, TOTAL Routine 11/08/2024 9:08 AM EDT Palpitations TSH W/REFLEX TO FT4 Routine 11/08/2024 9 :08 AM EDT Palpitations CBC WITH AUTO DIFFERENTIAL Routine 11/08/2024 9:08 AM EDT Palpitations HEMOGLOBIN A1C Routine 11/08/2024 9:08 AM EDT Dizziness XR ELBOW 3+ VIEWS RIGHT Routine 11/08/2024 9:00 AM EDT Pain and swelling of right elbow ECG 12-LEAD Routine 11/07/2024 7:00 PM EDT Dizziness Palpitations ECG 12-LEAD Routine 11/07/2024 Palpitations from Last 3 Months Results * Hold Green Gel (12/06/2024 12:19 PM EDT) Hold Green Gel See Note [facility] Comment:Specimen held untest ed for 24 hours; Call to requestChemistry testing. 12/06/2024 12:1 9 PM EDT 12/06/2024 3:00 PM EDT Generic External Data Provider HISTORICAL/NON OR DERABLE LABS Final Result Performing Organization Address [facility] de Phone Number [facility] [address] [place] [phone] * Beta-Hydroxybutyrate (12/06/2024 12:19 PM EDT) Beta-Hydroxybut yrate 0.16 0.02 - 0.27 mmol/L [facility] Blood Venous blood specimen / Unknown 12/06/2024 12:19 PM EDT 12/06/2024 2:21 PM EDT Sunday Barry MD LAB BLOOD ORDERABL ES Final Result Performing Organization Address [facility] Number [facility] [address] [place] [phone] * Insulin (12/06/2024 12:19 PM EDT) Pathologist [facility] Insulin 2 2 - 29 uU/mL [facility] Comment:This test was perfor med using the [employer] chemiluminescentmethod. Values obtained from different assay methods [...] MD LAB BLOOD ORDERABL ES Final Result Performing Organization Address [facility] de Phone Number [facility] [address] [place] [address] [phone] * (ABNORMAL) CBC auto differential (12/06/2024 12:09 PM EDT) Only the most recent of2 resultswithin the time period is included. White Blood Count 5.3 4.8 - 10.8 X10*3/uL [facility] Red Blood Count 4.04(L) 4.20 - 5.50 X10*6/uL [facility] Hemoglobin 13.3 12.0 - 16.0 g/dl [facility] Hematocrit 38.5 37.0 - 47.0 % [facility] Mean Corpuscular Volume 95.3 80.0 - 98.0 fL [facility] Mean Corpuscular Hemoglobin 32.9 27.0 - 33.0 pg [facility] Mean Corpuscular HGB Conc 34.5 31.0 - 35.0 g/dl [facility] Red Cell Distribution Width 12.6 11.0 - 16.0 % [facility] Platelet Count 158(L) 160 - 400 X10*3/uL [facility] Mean Platelet Volume 12.7(H) 9.4 - 12.3 fL [facility] Neutrophils Percent Auto 61.1 45 - 73 % [facility] Imm Gran Pct Auto 0.4 0.0 - 0.4 % [facility] Lymphocytes Percent Auto 29.6 20 - 40 % [facility] Monocytes Percent Auto 7.2 2 - 11 % [facility] Eosinophils Percent Auto 0.8 0 - 4 % [facility] Basophils Percent Auto 0.9 0 - 2 % [facility] NRBC Pct Auto 0.0 0.0 - 0.2 /100WBC [facility] Neutrophils Absolute Auto 3.2 2.0 - 8.3 x10*3/uL [facility] Imm Gran Abs Auto 0.02 0.00 - 0.03 X10*3/uL [facility] Lymphocytes Absolute Auto 1.6 1.2 - 4.9 X10*3/uL [facility] Monocytes Absolute Auto 0.4 0.1 - 1.2 X10*3/uL [facility] Eosinophils Absolute Auto 0.0 0.0 - 0.4 X10*3/uL [facility] Basophils Absolute Auto 0.1 0.0 - 0.2 X10*3/uL [facility] NRBC Abs Auto 0.000 0.0 - 0.012 X10*3/uL [facility] Blood Venous blood specimen / Unknown 12/06/2024 12:09 PM EDT 12/06/2024 2:44 PM EDT us Sunday Barry MD LAB BLOOD ORDERABL ES Final Result [facility] [address] [place] [phone] * Vitamin D, 25-Hydroxy, Total, Immunoassay (11/08/2024 9:08 AM EDT) Vitamin D 25-OH Total 73.6 >30 ng/mL [facility] Comment: Health Based Reference Values*< 20 ng/mL Swmvqfmmd15-29 ng/mL Insufficient> 30 ng/mL Sufficient*Radha CARREON. N Engl J Med. 2007;357:266-280There is no well-established upper level of normal vitamin Dlevels. Some laboratories use 50 ng/mL as an upper limit ofnormal. However, toxicity is patient-dependent and may occurat any level. Careful correlation with the patient'spresentation is necessary and, if there is concern forvitamin D toxicity, treatment should be consideredirrespective of the serum level.Care must be taken in interpreting Vitamin D results fromdifferent laboratories and methodologies. Published datademonstrated that results from patients undergoinghemodialysis may show a negative bias when tested withvarious automated 25-OH vitamin D assays when compared toLC-MS/MS.When testing samples from patients whose predominant form ofVitamin D is Vitamin D2, such as patients receiving VitaminD2 supplementation, results that are subtherapeutic shouldbe confirmed with another method such as LC-MS/MS. Blood Venous blood specimen / Unknown 11/08/2024 9:08 AM EDT 11/08/2024 11:26 AM EDT [facility]icia [email or web address] LAB BLOOD ORDERABLES Final Resu lt Performing Organization Address [facility]/ZIP Co de Phone Number [facility] [address] [place] [phone] * TSH W/Reflex to FT4 (11/08/2024 9:08 AM EDT) TSH reflex Free T4 1.13 0.32 - 4.0 uIU/mL [facility] Blood Venous blood specimen / Unknown 11/08/2024 9:08 AM EDT 11/08/2024 11:[address] [facility] LAB BLOOD ORDERABLES Final Resu lt Performing Organization Address [facility] Co de Phone Number [facility] [address] [place] [phone] * Albumin, Random Urine W/Creatinine (11/08/2024 9:08 AM EDT) Creatinine, Urine 228.51 mg/dL [facility] Microalbumin Urine 22.0 mg/L [facility] Microalbum Creatinine Ratio Ur 9.6 <30 ug/mg cr [facility] Comment:Albumin/Creatinine R atio Reference Ranges: Normal: < 30 ug/mg creatinine Microalbuminuria: 30 - 300 ug/mg creatinineClinical Albuminuria: > 300 ug/mg creatinine Urine (Urine, Random) 11/08/2024 9:08 AM EDT 11/08/2024 11:14 AM EDT Felicia [email or web address] LAB URINE ORDERABLES Final Resu lt Performing Organization Address [facility] Co de Phone Number [facility] [address] [place] [phone] * Iron And Total Iron Binding Capacity (11/08/2024 9:08 AM EDT) Iron 122 30 - 160 mcg/dL [facility] Total Iron Binding Capacity 272 228 - 428 mcg/dL [facility] Percent Iron Saturation 45 15 - 50 % [facility] Unsaturated Iron Binding 150 ug/dL [facility] Blood Venous blood specimen / Unknown 11/08/2024 9:08 AM EDT 11/08/2024 11:26 AM EDT [facility] LAB BLOOD ORDERABLES Final Resu lt Performing Organization Address [facility] Co de Phone Number [facility] [address] [place] [phone] * T3, Total (11/08/2024 9:08 AM EDT) T3, Total 81 76 - 181 ng/dL [facility] Comment:THIS TEST WAS PERFOR MED AT:[email or web address] [place] [phone] MICHAUD MD Blood Venous blood specimen / Unknown 11/08/2024 9:08 AM EDT 11/08/2024 11:26 AM EDT [facility] LAB BLOOD ORDERABLES Final Resu lt Performing Organization Address [facility] de Phone Number [facility] [address] [place] [phone] * Hemoglobin A1c (11/08/2024 9:08 AM EDT) Hemoglobin A1c 5.3 <6.0 % [facility] Comment:Hemoglobin A1C Refer ence Range Adults: 4.8 - 6.0 % Non diabetic: < 6.0 % Goal: < 7.0 %Additional Action Suggested: > 8.0 %Note: Hemoglobin A1c results are invalid for patients with abnormal amounts of HbF. Blood transfusions may impact the HbA1c concentration in the patient sample. Estimated Average Glucose 105 mg/dL [facility] Comment:eAG = Estimated ave rage glucose which is %A1C expressed asaverage glucose, using the formula of the H6M-KzmgarcWbtqaqm Glucose study (ADAG), Diabetes Care, Vol.31,#8,Sep. 2007 Blood Venous blood specimen / Unknown 11/08/2024 9:08 AM EDT 11/08/2024 11:26 AM EDT [facility] LAB BLOOD ORDERABLES Final Resu lt Performing Organization Address City/[facility]/ZIP Co de Phone Number [facility] [address] [place] [phone] * Ferritin (11/08/2024 9:08 AM EDT) Ferritin 68 10 - 250 ng/mL [facility] Blood Venous blood specimen / Unknown 11/08/2024 9:08 AM EDT 11/08/2024 11:26 AM EDT [facility] LAB BLOOD ORDERABLES Final Resu lt Performing Organization Address [facility]/ZIP Co de Phone Number [facility] [address] [place] [phone] * (ABNORMAL) Comprehensive Metabolic Panel (11/08/2024 9:08 AM EDT) Sodium 142 135 - 145 mmol/L [facility] Potassium 4.5 3.3 - 5.1 mmol/L [facility] Chloride 106 96 - 108 mmol/L [facility] Carbon Dioxide 29 22 - 29 mmol/L [facility] Anion Gap 12 12 - 20 [facility] Urea Nitrogen (BUN) 13 9 - 16 mg/dL [facility] Creatinine, Serum 0.67 0.5 - 1.4 mg/dL [facility] Estimated Glomerular Filt Rate >60 [facility] Comment:Chronic Kidney Disea se: Estimated GFR < 60 mL/min/1.97l5Ixzpgq Kidney Disease: Estimated GFR < 15 mL/min/1.73m2 Glucose 95 60 - 115 mg/dL [facility] Calcium 9.8 8.4 - 10.2 mg/dL [facility] Bilirubin, Total 0.6 0.0 - 1.0 mg/dL [facility] Aspartate Amino Transferase 17 5 - 31 U/L [facility] Alanine Aminotransferase 12 0 - 31 U/L [facility] Total Protein 7.4 6.5 - 8.0 g/dL [facility] Albumin Level 5.1(H) 3.5 - 5.0 g/dL [facility] Alkaline Phosphatase 42 39 - 117 U/L [facility] Blood Venous blood specimen / Unknown 11/08/2024 9:08 AM EDT 11/08/2024 11:26 AM EDT us Felicia Jack QUALITY CONTROL MANAGER LAB BLOOD ORDERABLES Final Resu lt Performing Organization Address City/State/[facility] Co de Phone Number [facility] [address] [place] [phone] * XR Elbow 3+ Views Right (11/08/2024 9:00 AM EDT) Anatomical Region Laterality Modality Upper Extremities, Elbow Right Radiogr aphic Imaging 11/08/2024 9:00 AM EDT Narrative 11/08/2024 9:21 AM EDT [address] [address] XRay Report Signed Patient: Ashtyn Reyes MR#: [id number] : 1980 Acct:[id number] Age/Sex: 44 / F ADM Date: 11/08/24 Loc: [facility] Attending Dr: Felicia Jack MACHINE TAPER Ordering Physician: Felicia Jack NP Date of Service: 11/08/24 Procedure(s): XR elbow RT min 3V Accession Number(s): [id number] cc: Felicia Jack NP Reason for Exam: [...] in OV> 11/08/24917 DD/ 9 TD/TT: 11/08/24909 Sterile Process Tech: Procedure Note Donotuseinterpreter, Image - 11/08/[address] [address] XRay Report Signed Patient: Ashtyn ReyesMR#: [id number] : 1980Acct:[id number] Age/Sex: 44 / FADM Date: 11/08/24 Loc: HO.[facility] Attending Dr: Felicia Jack NP Ordering Physician: Felicia Jack NP Date of Service: 11/08/24 Procedure(s): XR elbow RT min 3V Accession Number(s): [id number] cc: Felicia Jack NP Reason for Exam: [...] MD in OV> 11/08/24917 DD/ 9 TD/TT: 11/08/24 0910 Sterile Process Tech: Felicia Jack QUALITY CONTROL MANAGER IMG XR PROCEDURES Final Result * ECG 12 lead (11/07/2024 7:00 PM EDT) Only the most recent of2 resultswithin the time period is included. Felicia Martinez FNP - 11/07/2024 7:00 PM EDT Sinus rhythm P/NJ: 94/170 ms QRS: 80 ms QT/Qtc: 396/372 ms P/QRS/T axis: 140/142/145 deg Heart rate: 53 bpm Felicia Jack QUALITY CONTROL MANAGER ECG ORDERABLES Final Result from Last 3 Months Insurance [facility] C3 Care Teams Garden Implement Mechanic Relationship Specialty Start Date End Date Sunday Oneill MD [address] [place] [phone] PCP - General Internal Medicine 11/14/24
--- OUTSIDE RECORDS SUMMARY | 2024-12-06 15:49 | XMS_ITS | Encounter Summary ---
Author Organization [employer] Address [address] [facility] 7 [place] [address] Care Team Providers Care Chief Program Officer Name Role Phone Sunday Oneill MD Primary Care Prov ider Reason for Visit * Reason Onset Date Comments Durable Medical Equipment 12/06/2024 Encounter Details Date Type Department Care Team ([facility] Contact Info) Description 12/06/2024 Refill [facility] [address] [place] [address] Sunday Oneill MD [address] [place] [address] Social History Tobacco Use Types Packs/Day Years [...] documented as of this encounter Care Teams Chief Program Officer Relationship Specialty Start Date End Date Sunday Oneill MD [address] [place] [phone] PCP - General Internal Medicine 11/14/24 documented as of this encounter
--- OUTSIDE RECORDS SUMMARY | 2024-12-06 15:49 | XMS_ITS | Encounter Summary ---
Author Organization [employer] Address [address] [facility] [address] [place] [address] Care Team Providers Care Oliving Machine Operator Name Role Phone Sunday Oneill MD Primary Care Prov ider Encounter Details Date Type Department Care Team (Latest Contact Info) Description 12/06/2024 Travel Social History Tobacco Use Types Packs/Day [...] is your housing situation today? I have steffanyliset painter 11/14/[address] you [...] documented as of this encounter Care Teams Oliving Machine Operator Relationship Specialty Start Date End Date Sunday Oneill MD [address] [place] [phone] PCP - General Internal Medicine 11/14/24 documented as of this encounter
--- OUTSIDE RECORDS SUMMARY | 2024-12-06 15:49 | XMS_ITS | Encounter Summary ---
Author Organization [employer] Address [address] [facility] 7 [place] [address] Care Team Providers Care Donation Specialist Name Role Phone Sunday Oneill MD Primary Care Prov ider Reason for Visit * Reason Onset Date Comments Xr order 11/15/2024 Encounter Details Date Type Department Care Team ([facility] st Contact Info) Description 11/15/2024 Telephone [facility] [address] [place] [address] Sunday Oneill MD [address] [place] [phone] Xr order Social History Tobacco Use Types Packs/Day Years [...] encounter Miscellaneous Notes * Telephone Encounter - Hilda Rivas RN - 11/15/2024 10:55 AM EDT Pt stating that she is still experiencing swelling on her elbow and forearm and pain, pain is burning sensation. Pt reports that she would like another x-ray of her elbow. Pt has been using BRAIN wrap around elbow for support. Pt does report doing repetitive motions for right arm. Author advised willhave provider review and assess if additional testing or referrals are needed. Pt verbalized underst anding and agreement with plan. * Telephone Encounter - Nicolasa Alvarado - 11/15/2024 10:37 AM EDT Tc from pt requesting an an order for an XR for her elbow Contact pt at [phone] documented in this encounter Plan of Treatment Not on file documented as of this encounter Visit Diagnoses Not on filedocumented in this encounter Additional Health Concerns Assessment Noted Time PHQ-9 Depression Total Score: 0 11/15/19 25 10:52 AM EDT documented as of this encounter Care Teams Donation Specialist Relationship Specialty Start Date End Date McmullenSunday Ya MD [address] [place] [phone] PCP - General Internal Medicine 11/14/24 documented as of this encounter
--- OUTSIDE RECORDS SUMMARY | 2024-12-06 15:50 | XMS_ITS | Encounter Summary ---
Author Organization [employer] Address [address] [facility] [address] [place] [address] Care Team Providers Care Lawn Mower Sharpener Name Role Phone Sunday Oneill MD Primary Care Prov ider Encounter Details Date Type Department Care Team (Late st Contact Info) Description 12/06/2024 Orders Only GENERIC EXTERNAL DATA DEPARTMENT Provider, Generic External Data Social History Tobacco Use Types Packs/Day Years [...] on file documented as of this encounter Procedures Procedure Name Priority Date/Time Associated Diagnosis Comments HOLD GREEN GEL Routine 12/06/2024 12:19 PM EDT documented in this encounter Results * Hold Green Gel (12/06/2024 12:19 PM EDT) Hold Green Gel See Note [facility] Comment:Specimen held untest ed for 24 hours; Call to requestChemistry testing. 12/06/2024 12:1 9 PM EDT 12/06/2024 3:00 PM EDT us Generic External Data Provider HISTORICAL/NON OR DERABLE LABS Final Result [facility] [address] [place] [address] [phone] documented in this encounter Visit Diagnoses Not on filedocumented in this encounter Additional Health Concerns Assessment Noted Time PHQ-9 Depression Total Score: 0 11/15/19 10:52 AM EDT documented as of this encounter Care Teams Lawn Mower Sharpener Relationship Specialty Start Date End Date Sunday Oneill MD [address] [place] [phone] PCP - General Internal Medicine 11/14/24 documented as of this encounter
--- OUTSIDE RECORDS SUMMARY | 2024-12-06 15:50 | XMS_ITS | Clinical Summary ---
Author Organization [facility] Address [address] [place] [phone] Phone Care Team Providers Care Beach Lifeguard Name Role Phone Rajendra Cast Primary Care Provider [phone] Social History Tobacco Use Types Packs/Day Years Used Date Smoking Tobacco: Never Assessed Comments Unknown Sex and Gender Information Value Date Recorded Sex Assigned at Female 01/26/2020 10:49 AM EST Legal Sex Female 10:40 AM EST Gender Identity Female 01/26/2020 10:49 AM EST Sexual Orientation Straight 01/26/2020 10 :49 AM EST Plan of Treatment Not on file Medical Devices Not on file Insurance [facility] Care Teams Beach Lifeguard Relationship Specialty Start Date End Date Rajendra Cast DO [address] [place] [id number] PCP - General Internal Medicine 01/26/20 Additional Source Comments The information contained in this document represents components of the legal health record. It is not the complete legal health record.[facility]
[2024-12-13 06:17] LABS: Insulin Auto Antibody <0.4 U/mL (<0.4)
[2024-12-15 04:52] LABS: Insulinoma associated 2 aatb <5.4 U/mL (<5.4)
== END 2024-12-06 12:17 | disposition home or self-care (01) ==
LOC: HO.CHCLDS 12:16
PROVIDERS: Visit Provider Internal Medicine
DX: R42 Dizziness and giddiness (principal)
CPT/HCPCS: 36415; 82010; 83525; 84681; 85025; 86337

== ENCOUNTER 2024-12-26 12:33 | Outpatient (REF) | payer MEDICAID, SELFPAY ==
--- OUTSIDE RECORDS SUMMARY | 2024-12-26 11:15 | XMS_ITS | Encounter Summary ---
Author Organization [employer] Address [address] [facility] [address] [place] [address] Care Team Providers Care Seed Specialist Name Role Phone Sunday Oneill MD Primary Care Prov ider Encounter Details Date Type Department Care Team ([facility] st Contact Info) Description 12/26/2024 11:15 AM EST Office Visit [facility] & PEDS [address] [place], [place] [phone] Jaleesa Scott MD [address] [place] [address] Proctitis (Primary Dx); Other irritable bowel syndrome; Gastroparesis Social History Tobacco Use Types Packs/Day Years Used Date Smoking Tobacco: Every Day Cigarettes 0.5 24.9 Started: 2000 Smokeless Tobacco: Never Alcohol Use Standard Drinks/Week Comments Never 0 (1 standard drink = 0.6 oz pur e alcohol) Depression Answer Date Recorded Patient Health Questionnaire-9 Score 0 11/14/2024 Patient Health Questionnaire-9 Score 0 11/14/2024 Last PHQ-9: Questionnaire Data Not on file 0 11/14/2024 Housing Stability Answer Date Recorded What is your housing situation today? I have steffany sing 11/14/[address] you li [...] Sign Reading Time Taken Comments Blood Pressure 118/74 12/26/2024 11:29 AM EST Pulse 64 12/26/2024 11:29 AM EST Temperature 36.3 C (97.4 F) 12/26/2024 11:29 AM EST Respiratory Rate 12 12/26/2024 11:29 AM EST Oxygen Saturation 99% 12/26/2024 11:29 AM EST Inhaled Oxygen Concentration - - Weight 45.4 kg (100 lb) 12/26/2024 11:29 AM EST Height 162.6 cm (5' 4 ) 12/26/2024 11:29 AM EST Body Mass Index 17.16 12/26/2024 11:29 AM EST documented in this encounter Progress Notes * Jaleesa Scott MD - 12/26/2024 11:15 AM EST SUBJECTIVE Ashtyn Reyes is a 44 y.o. female who presents for No chief complaint on file.. Ashtyn Reyes, 44-year-old female - Stomach issues with inability to eat or digest food for 7 days prior to encounter - Multiple episodes of vomiting since December 14, 2024 - Mid-abdominal pain, burning sensation under left rib - Reports feeling too skinny - Unable to tolerate protein drinks (Boost), throws up after ingestion - History of gastroparesis, IBS, GERD, chronic back pain, kidney disease - Reports diarrhea, sometimes fatty and acidic, with burning and pain - No fevers, chills, urinary symptoms, or hematuria - Stopped all previous medications per prior primary care physician, reports worsening symptoms since discontinuation - Family history of brother with Crohn's disease - History of gallbladder and appendix removal Problem List[1] Allergies[2] Medications Ordered Prior to Encounter[3] Review of Systems Constitutional: Negative for chills, diaphoresis and fatigue. Respiratory: Negative for cough, choking and shortness of breath. Gastrointestinal: Positive for abdominal pain. Alternating constipation and diarrhea OBJECTIVE Vitals: 12/26/24 1129 BP: 118/74 BP Location: Left arm Patient Position: Sitting BP Cuff Size: Adult Pulse: 64 Resp: 12 Temp: 97.4 ??F (36.3 ??C) TempSrc: Oral SpO2: 99% Weight: 100 lb (45.4 kg) Height: 5' 4 (1.626 m) Physical Exam Constitutional: General: She is not in acute distress. Appearance: Normal appearance. She is not ill-appearing, toxic-appearing or diaphoretic. Pulmonary: Effort: Pulmonary effort is normal. Abdominal: Tenderness: There is abdominal tenderness. Neurological: General: No focal deficit present. Mental Status: She is alert. Psychiatric: Mood and Affect: Affect is tearful. Assessment/Plan Assessment/Plan Diagnoses and all orders for this visit: Proctitis - Sed Rate by Modified Westergren; Future - C-reactive Protein; Future Other irritable bowel syndrome - Lipase; Future - Amylase; Future Gastroparesis - famotidine (Pepcid) 20 MG tablet; Take 1 tablet (20 mg) by mouth 2 times daily. - metoclopramide (Reglan) 10 MG tablet; Take 1 tablet (10 mg) by mouth 4 times daily for 10 days. Proctitis: - Proctitis identified on CT scan with mild thickening of the rectum. - Ordered ESR and CRP to check for inflammation. Completed antibiotics as previously prescribed. Other irritable bowel syndrome: - IBS noted as a chronic condition, contributing to gastrointestinal symptoms. - Referral to gastroenterology recommended. Advised to follow up with architectural technician. Gastroparesis: - Gastroparesis contributing to inability to tolerate oral intake and vomiting. - Prescribed metoclopramide once daily, with instructions to increase as tolerated. Advised to takemedication 30 minutes before attempting oral intake. Provided samples of protein drinks to trial after medication. Prescribed famotidine. Hepatic steatosis: - Fatty infiltration of the liver identified on imaging, described as nonalcoholic hepatic steatosis (MASH). - Advised to avoid any hepatotoxic medication. Pt can have one tylenol as needed no more than 3 times a week for occasional headache. Burning sensation and fatty stools: - Burning sensation and fatty stools noted, possible pancreatic enzyme deficiency considered. - Ordered pancreatic enzyme level testing. Advised trial of warm water sitz baths for symptomatic relief. This note was drafted using Ambient (AI) technology. The patient/patient's guardian has been informed and has consented to the use of this technology: Yes [1] Patient Active Problem List Diagnosis Encounter for medical examination to establish care Chronic abdominal pain Bipolar depression (CMS/HCC) (HCC) Dizziness Poor appetite [2] Allergies Allergen Reactions Amoxicillin Hives Codeine Penicillins Percocet [Oxycodone-Acetaminophen] [3] Current Outpatient Medications on File Prior to Visit Medication Sig Dispense Refill Nutritional Supplements (Ensure) Take 1 Bottle by mouth 2 times daily. 237 mL 12 No current facility-administered medications on file prior to visit. documented in this encounter Plan of Treatment Upcoming Encounters Date Type Department Care Team (Late st Contact Info) Description 02/01/2025 11:15 AM EST Office Visit [facility] MED & PEDS [address] [place] [phone] Sunday Oneill MD [address] [place] [address] Scheduled Orders Name Type Priority Associated Diagnoses Orde r Schedule Sed Rate by Modified Westergren Lab Routine Proctitis Expected: 12/26/2024, Expires: 12/26/2025 C-reactive Protein Lab Routine Proctitis Expected: 12/26/2024 (Approximate), Expires: 12/26/2025 Lipase Lab Routine Other irritable bowel syndrome Expected: 12/26/2024, Expires: 12/26/2025 Amylase Lab Routine Other irritable bowel syndrome Expected: 12/26/2024 (Approximate), Expires: 12/26/2025 documented as of this encounter Visit Diagnoses Diagnosis Proctitis- Primary Other specified disorder of rectum and anus Other irritable bowel syndrome Gastroparesis documented in this encounter Additional Health Concerns Assessment Noted Time PHQ-9 Depression Total Score: 0 11/15/19 10:52 AM EDT documented as of this encounter Care Teams Seed Specialist Relationship Specialty Start Date End Date Sunday Oneill MD [address] [place] [id number] PCP - General Internal Medicine 11/14/24 documented as of this encounter
--- OUTSIDE RECORDS SUMMARY | 2024-12-26 14:42 | XMS_ITS | Encounter Summary ---
Author Organization [employer] Address [address] [facility] [address] [place] [address] Care Team Providers Care Consulting Sme Name Role Phone Sunday Oneill MD Primary Care Prov ider Encounter Details Date Type Department Care Team (Latest Contact Info) Description 12/26/2024 Travel Social History Tobacco Use Types Packs/Day [...] as of this encounter Plan of Treatment Upcoming Encounters Date Type Department Care Team ([facility] st Contact Info) Description 02/01/2025 11:15 AM EST Office Visit [facility] MED & PEDS [address] [place] [address] Sunday Oneill MD [address] [place] [address] documented as of this encounter Visit Diagnoses Not on filedocumented in this encounter Additional Health Concerns Assessment Noted Time PHQ-9 Depression Total Score: 0 11/15/19 10:52 AM EDT documented as of this encounter Care Teams Consulting Sme Relationship Specialty Start Date End Date Sunday Oneill MD [address] [place] [address] PCP - General Internal Medicine 11/14/24 documented as of this encounter
--- OUTSIDE RECORDS SUMMARY | 2024-12-26 14:42 | XMS_ITS | Encounter Summary ---
Author Organization [employer] Address [address] [facility] [address] [place] [address] Care Team Providers Care Sample Display Preparer Name Role Phone Sunday Oneill MD Primary Care Prov ider Encounter Details Date Type Department Care Team ([facility] st Contact Info) Description 11/30/2024 Results Follow-Up [facility] [address] [place], [place] [phone] Consuelo Roy RN [address] [place] [address] Hemoglobin A1c, CBC auto differential, TSH W/Reflex [...] Upcoming Encounters Date Type Department Care Team ([facility] st Contact Info) Description 02/01/2025 11:15 AM EST Office Visit [facility] MED [facility] PEDS [address] [place] [address] Sunday Oneill MD [address] [place] [address] documented as of this encounter Visit Diagnoses Not on filedocumented in this encounter Additional Health Concerns Assessment Noted Time PHQ-9 Depression Total Score: 0 11/15/19 10:52 AM EDT documented as of this encounter Care Teams Sample Display Preparer Relationship Specialty Start Date End Date Sunday Oneill MD [address] [place] [address] PCP - General Internal Medicine 11/14/24 documented as of this encounter
--- OUTSIDE RECORDS SUMMARY | 2024-12-26 14:42 | XMS_ITS | Clinical Summary ---
Author Organization [facility] [address] [place] [address] [place] [phone] Phone Care Team Providers Care Director Of Academic Name Role Phone Vijay Wheatley MD Primary Care Provider [phone] Allergies Active Allergy Reactions Criticality Noted Date Comments Codeine 01/04/2021 Hydrocodone-Acetaminophen 01/22/2021 Penicillins 01/22/2021 Medications amoxicillin-cla vulanate (AUGMENTIN) 875-125 mg per tablet Take 1 tablet by mouth every 12 (twelve) hours for 10 days. 20 each 12/13/2024 5 ondansetron (ZOFRAN) 4 mg tablet Take 1 tablet (4 mg total) by mouth every 6 (six) hours for 3 days. 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 Severe malnutrition (CMS/HCC V24) 02/04/2023 Irritable bowel syndrome 01/31/2022 Malnutrition (CMS/HCC V24) 01/31/2022 Stress headache 01/31/2022 Tendinitis of left rotator cuff 01/31/2022 PTSD (post-traumatic stress disorder) 01/22/2021 Bipolar depression (CMS/HCC V24, CMS/[facility] V28) Chronic low back pain 01/22/2021 Insomnia 01/22/2021 Anxiety and depression 01/04/2021 Constipation 01/04/2021 GERD (gastroesophageal reflux disease) Gastroparesis 01/04/2021 Overview (02/04/2024): Unclear etiology dx in [place] Decreased appetite 01/04/2021 Rotator cuff disorder, left 01/04/2021 Unintentional weight loss 01/04/2021 Encounters Date Type Department Care Team Description 12/13/2024 7:22 PM EDT - 12/13/2024 11:00 PM EDT Emergency [facility] Emergency [address] [place] [address] Proctitis (Primary Dx); Nausea Discharge Disposition: Home or Self Care from Last 3 Months Surgical History Surgery Date Site/Laterality Comments CHOLECYSTECTOMY PROCEDURE: HISTORICAL CHOLECYSTECTOMY SECTION PROCEDURE: SD DELIVERY ONLY TUBAL LIGATION PROCEDURE: HISTORICAL TUBAL LIGATION OTHER SURGICAL HISTORY PROCEDURE: HISTORY OTHER; COMMENT: uterine ablation Medical History Medical History Date Comments PTSD (post-traumatic stress disorder) 01/22/2021 DX:PTSD (post-traumatic stress disorder) Bipolar depression ([facility]/HCC V24, CMS/HCC V28) 01/22/2021 DX:Bipolar depression ([facility]) Insomnia 01/22/2021 DX:Insomnia BMI less than 19,adult 01/04/2021 DX:BMI le ss than 19,adult Anxiety 01/04/2021 DX:Anxiety Gastroparesis 01/04/2021 DX:Gastroparesis ; COMMENT: Unclear etiology dx in [place] GERD (gastroesophageal reflux disease) DX:GERD (gastroesophageal reflux [...] Sign Reading Time Taken Comments Blood Pressure 114/68 12/13/2024 9:22 PM EDT Pulse 59 12/13/2024 9:22 PM EDT Temperature 37.1 C (98.8 F) 12/13/2024 9:22 PM EDT Respiratory Rate 16 12/13/2024 9:22 PM EDT Oxygen Saturation 98% 12/13/2024 9:22 PM EDT Inhaled Oxygen Concentration - - Weight 45.4 kg (100 lb) 12/13/2024 7:21 PM EDT Height 165.1 cm (5' 5 ) 12/13/2024 7:21 PM EDT Body Mass Index 16.64 12/13/2024 7:21 PM EDT Plan of Treatment Health Maintenance Due Date Last Done Comments Breast Cancer Screening 1982 DTaP,Tdap,and Td Vaccines (1 - Tdap) 2001 Hepatitis A Vaccines (1 of 2 - Risk 2-dose series) 2001 Hepatitis B Vaccines (1 of 3 - 19+ 3-dose series) 2001 HPV Vaccines (1 - 3-dose SCD M series) 2009 HIV Screening 01/26/2022 Hepatitis C Screening 01/26/2022 Social Influencers of Health Screening 01/26/2022 Depression Screening 02/17/2024 06/26/2023 COVID-19 Vaccine ( - 2024-2 6 season) 2024 Influenza Vaccine (#1) 2024 Cholesterol [...] Procedure Name Priority Date/Time Associated Diagnosis Comments CT ABDOMEN PELVIS W CONTRAST STAT 12/13/2024 9:29 PM EDT POC , URINE DIAGNOSTIC STAT 12/13/2024 7:40 PM EDT URINALYSIS WITH REFLEX MICROSCOPIC STAT 12/13/2024 7:28 PM EDT URINALYSIS WITH REFLEX MICROSCOPIC STAT 12/13/2024 7:28 PM EDT CBC WITH AUTO DIFFERENTIAL STAT 12/13/2024 7:18 PM EDT HCG, SERUM, QUALITATIVE STAT 12/13/2024 7:18 PM EDT LIPASE STAT 12/13/2024 7:18 PM EDT COMPREHENSIVE METABOLIC PANEL STAT 12/13/2024 7:18 PM EDT CBC AND DIFFERENTIAL STAT 12/13/2024 7:18 PM EDT HM DEPRESSION SCREENING Routine 06/26/2023 HM PAP SMEAR Routine 02/13/2023 LIPID PANEL Routine 01/04/2021 from Last 3 Months or Most Recently Relevant to Health Maintenance Results * CT Abdomen Pelvis w Contrast (12/13/2024 9:29 PM EDT) Anatomical Region Laterality Modality Body Computed Tomogra phy 12/13/2024 10:3 4 PM EDT Impressions 12/13/2024 10:34 PM EDT 1. Fatty infiltration of the liver. 2. Small hiatal hernia. 3. 3.2 cm left ovarian cyst. 4. Mild thickening of the rectum suggestive of proctitis. This document has been electronically signed by: Prabhjot Batista MD on 12/13/2024 22:34:10 Narrative 12/13/2024 10:34 PM EDT INDICATION: Abdominal pain, acute, no prior medical history CT abdomen and pelvis with contrast Comparison: None provided Findings: Small hiatal hernia. Fatty infiltration of the liver. Status post cholecystectomy. No bowel obstruction, pneumoperitoneum, or pneumatosis. 3.2 cm left ovarian cyst. Mild thickening of the rectum suggestive of proctitis. The bones are intact. Procedure Note Prabhjot Batista MD - 12/13/2024 INDICATION: Abdominal pain, acute, no prior medical history CT abdomen and pelvis with contrast Comparison: None provided Findings: Small hiatal hernia. Fatty infiltration of the liver. Status post cholecystectomy. No bowel obstruction, pneumoperitoneum, or pneumatosis. 3.2 cm left ovarian cyst. Mild thickening of the rectum suggestive of proctitis. The bones are intact. IMPRESSION: 1. Fatty infiltration of the liver. 2. Small hiatal hernia. 3. 3.2 cm left ovarian cyst. 4. Mild thickening of the rectum suggestive of proctitis. This document has been electronically signed by: Prabhjot Batista MD on 12/13/2024 22:34:10 us [address]i [place] IMG CT PROCEDURES Final Result * POC , urine manually resulted (12/13/2024 7:40 PM EDT) HCG, Ur POC Negative Negative POC hCG Int QC Pass? Yes Yes Urine Urine specimen obtained by clean catch procedure / Unknown 12/13/2024 7:40 PM EDT us Kassi ALMONTE POINT OF CARE TEST ENTER /EDIT ORDERABLES Final Result * (ABNORMAL) Urinalysis with reflex microscopic (12/13/2024 7:28 PM EDT) Specific [place] Urine 1.026 1.003 - 1.030 LAB URINALYSIS - AUTOMATED METHOD 12/13/2024 7:53 PM [facility] pH, Urine 6.0 5.0 - 8.0 pH LAB URINALYSIS - AUTOMATED METHOD 12/13/2024 7:53 PM [facility] Leukocytes, Urine Negative Negative LAB URINALYSIS - AUTOMATED METHOD 12/13/2024 7:53 PM [facility] Nitrite, Urine Negative Negative LAB URINALYSIS - AUTOMATED METHOD 12/13/2024 7:53 PM [facility] Protein, Urine Trace <=Trace mg/dL LAB URINALYSIS - AUTOMATED METHOD 12/13/2024 7:53 PM [facility] Glucose, Urine Negative Negative mg/dL LAB URINALYSIS - AUTOMATED METHOD 12/13/2024 7:53 PM [facility] Ketones, Urine Trace(A) Negative mg/dL LAB URINALYSIS - AUTOMATED METHOD 12/13/2024 7:53 PM [facility] Urobilinogen, Urine 1.0 0.2 - 1.0 mg/dL LAB URINALYSIS - AUTOMATED METHOD 12/13/2024 7:53 PM [facility] Bilirubin, Urine Negative Negative LAB URINALYSIS - AUTOMATED METHOD 12/13/2024 7:53 PM [facility] Blood, Urine Negative Negative LAB URINALYSIS - AUTOMATED METHOD 12/13/2024 7:53 PM [facility] Urine Urine specimen obtained by clean catch procedure / Unknown Non-blood Collection / Unknown 12/13/2024 7:28 PM EDT 12/13/2024 7:43 PM EDT us Ana Mc MD LAB URINE ORDERABLES Final Res ult [facility] [address] [place] [address], * (ABNORMAL) CBC auto differential (12/13/2024 7:18 PM EDT) WBC 5.0 4.8 - 10.8 K/mcL LAB HEMETOLOGY METHOD 12/13/2024 7:49 PM EDT [facility] RBC 4.30 3.80 - 4.80 M/mcL LAB HEMETOLOGY METHOD 12/13/2024 7:49 PM EDT [facility] Hemoglobin 14.1 11.5 - 16.0 g/dL LAB HEMETOLOGY METHOD 12/13/2024 7:49 PM EDT [facility] Hematocrit 41.9 35.0 - 47.0 % LAB HEMETOLOGY METHOD 12/13/2024 7:49 PM EDT [facility] MCV 98.6(H) 79.0 - 98.0 FL LAB HEMETOLOGY METHOD 12/13/2024 7:49 PM EDT [facility] MCH 33.2(H) 27.0 - 32.0 pcg LAB HEMETOLOGY METHOD 12/13/2024 7:49 PM EDT [facility] MCHC 33.7 32.0 - 37.0 g/dL LAB HEMETOLOGY METHOD 12/13/2024 7:49 PM EDT [facility] RDW 12.3 11.0 - 15.0 % LAB HEMETOLOGY METHOD 12/13/2024 7:49 PM EDT [facility] Platelets 163 130 - 400 K/mcL LAB HEMETOLOGY METHOD 12/13/2024 7:49 PM EDT [facility] MPV 12.0(H) 7.0 - 11.0 FL LAB HEMETOLOGY METHOD 12/13[facility]2024 7:[facility] NRBC 0.0 <1.0 % LAB HEMETOLOGY METHOD 12/13/2024 7:49 PM [facility] NRBC Absolute 0.00 <0.10 K/mcL LAB HEMETOLOGY METHOD 12/13/2024 7:49 PM [facility] Neutrophils Relative 45.2 % LAB HEMETOLOGY METHOD 12/13/2024 7:49 PM [facility] Lymphocytes Relative 45.1 % LAB HEMETOLOGY METHOD 12/13/2024 7:49 PM [facility] Monocytes Relative 6.7 % LAB HEMETOLOGY METHOD 12/13/2024 7:49 PM [facility] Eosinophils Relative 1.6 % LAB HEMETOLOGY METHOD 12/13/2024 7:49 PM [facility] Basophils Relative 1.2 % LAB HEMETOLOGY METHOD 12/13/2024 7:49 PM [facility] Immature Granulocytes Relative 0.2 % LAB HEMETOLOGY METHOD 12/13/2024 7:49 PM [facility] Neutrophils Absolute 2.24 1.50 - 7.00 K/mcL LAB HEMETOLOGY METHOD 12/13/2024 7:49 PM [facility] Lymphocytes Absolute 2.23 1.00 - 5.00 K/mcL LAB HEMETOLOGY METHOD 12/13/2024 7:49 PM [facility] Monocytes Absolute 0.33 0.20 - 1.00 K/mcL LAB HEMETOLOGY METHOD 12/13/2024 7:49 PM [facility] Eosinophils Absolute 0.08 0.00 - 0.50 K/mcL LAB HEMETOLOGY METHOD 12/13/2024 7:49 PM [facility] Basophils Absolute 0.06 0.00 - 0.20 K/[facility] LAB HEMETOLOGY METHOD 12/13/2024 7:49 PM EDT [facility] Immature Granulocytes Absolute 0.01 0.00 - 0.03 K/[facility] LAB HEMETOLOGY METHOD 12/13/2024 7:49 PM EDT [facility] Blood Venous blood specimen / Unknown Venipuncture / Unknown 12/13/2024 7:18 PM EDT 12/13/2024 7:44 PM EDT Ana Mc MD LAB BLOOD ORDERABLES Final Res ult [facility] [address] [place] [address], [place] [phone] * hCG, serum, qualitative (12/13/2024 7:18 PM EDT) hCG Qual Negative Negative 12/13/2024 8:07 PM EDT [facility] Blood Venous blood specimen / Unknown Venipuncture / Unknown 12/13/2024 7:18 PM EDT 12/13/2024 7:44 PM EDT Ana Mc MD LAB BLOOD ORDERABLES Final Res ult [facility] [address] [place] [address], [place] [phone] * Lipase (12/13/2024 7:18 PM EDT) Lipase 46 13 - 75 unit/L LAB CHEMISTRY METHOD 12/13/2024 8:13 PM EDT [facility] Blood Venous blood specimen / Unknown Venipuncture / Unknown 12/13/2024 7:18 PM EDT 12/13/2024 7:44 PM EDT Ana Mc MD LAB BLOOD ORDERABLES Final Res ult [facility] [address] [place] [address], * (ABNORMAL) Comprehensive metabolic panel (12/13/2024 7:18 PM EDT) Sodium 141 133 - 145 mmol/L LAB CHEMISTRY METHOD 12/13/2024 8:13 PM [facility] Potassium 4.3 3.5 - 5.5 mmol/L LAB CHEMISTRY METHOD 12/13/2024 8:13 PM [facility] Chloride 108 96 - 110 mmol/L LAB CHEMISTRY METHOD 12/13/2024 8:13 PM [facility] CO2 30 21 - 32 mmol/L LAB CHEMISTRY METHOD 12/13/2024 8:13 PM [facility] Anion Gap 3 3 - 11 LAB CHEMISTRY METHOD 12/13/2024 8:13 PM [facility] Glucose 99 70 - 100 mg/dL LAB CHEMISTRY METHOD 12/13/2024 8:13 PM [facility] BUN 15 5 - 25 mg/dL LAB CHEMISTRY METHOD 12/13/2024 8:13 PM [facility] Creatinine 0.85 0.50 - 1.10 mg/dL LAB CHEMISTRY METHOD 12/13/2024 8:13 PM [facility] eGFR 88 >=60 mL/min/1. 73m2 LAB CHEMISTRY METHOD 12/13/2024 8:13 PM [facility] Comment:Calculation based on the Chronic Kidney Disease Epidemiology Collaboration (CKD-EPI) equation refit without adjustment for race. BUN/Creatinine Ratio 17.6 LAB CHEMISTRY METHOD 12/13/2024 8:13 PM [facility] Calcium 9.6 8.5 - 10.5 mg/dL LAB CHEMISTRY METHOD 12/13/2024 8:13 PM EDT [facility] AST (SGOT) 5(L) 10 - 42 unit/L LAB CHEMISTRY METHOD 12/13/2024 8:13 PM T [facility] ALT (SGPT) 16 10 - 60 unit/L LAB CHEMISTRY METHOD 12/13/2024 8:13 PM [facility] Alkaline Phosphatase 40(L) 42 - 121 unit/L LAB CHEMISTRY METHOD 12/13/2024 8:13 PM EDT [facility] Total Protein 7.2 6.0 - 8.0 g/dL LAB CHEMISTRY METHOD 12/13/2024 8:13 PM T [facility] Albumin 4.4 3.2 - 5.0 g/dL LAB CHEMISTRY METHOD 12/13/2024 8:13 PM [facility] Total Bilirubin 0.4 0.0 - 1.4 mg/dL LAB CHEMISTRY METHOD 12/13/2024 8:13 PM T [facility] Blood Venous blood specimen / Unknown Venipuncture / Unknown 12/13/2024 7:18 PM EDT 12/13/2024 7:44 PM EDT Ana Mc MD LAB BLOOD ORDERABLES Final Res ult [facility] [address] [place] [address], * Depression Screening (06/26/2023) Depression Screening abstracted us Historical Provider HEALTH MAINTENANCE Final Result * Pap Smear (02/13/2023) Pathologist [facility] Pap smear no interpretation , abstracted Historical Provider HEALTH MAINTENANCE Final Result * Lipid panel (01/04/2021) LDL/HDL Ratio 3 0 - 4 Triglycerides 101 0 - 150 mg/dL Cholesterol 171 0 - 200 mg/dL HDL 64 >=40 mg/dL LDL Cholesterol 87 0 - 100 mg/dL Blood Venous blood specimen / Unknown Historical Provider LAB BLOOD ORDERABLES Ledy samuel Result from Last 3 Months or Most Recently Relevant to Health Maintenance Insurance MEDICAID - [place] [facility] [employer] Care Teams Director Of Academic Relationship Specialty Start Date End Date Vijay Wheatley MD [address] [place] [address] PCP - General Internal Medicine 08/21/21
--- OUTSIDE RECORDS SUMMARY | 2024-12-26 14:42 | XMS_ITS | Encounter Summary ---
Author Organization [employer] Address [address] [facility] 7 [place] [address] Care Team Providers Care Supervisor Incising Name Role Phone Sunday Oneill MD Primary Care Prov ider Reason for Visit * Reason Onset Date Comments Xr order 11/15/2024 Encounter Details Date Type Department Care Team ([facility] st Contact Info) Description 11/15/[address] [facility] [address] [place] [address] Sunday Oneill MD [address] [place] [phone] Xr order Social History Tobacco Use Types [...] XR for her elbow Contact pt at [phone] documented in this encounter Plan of Treatment Upcoming Encounters Date Type Department Care Team (Late st Contact Info) Description 02/01/2025 11:15 AM EST Office Visit [facility] [address] [place] [address] Sunday Oneill MD [address] [place] [address] documented as of this encounter Visit Diagnoses Not on filedocumented in this encounter Additional Health Concerns Assessment Noted Time PHQ-9 Depression Total Score: 0 11/15/19 10:52 AM EDT documented as of this encounter Care Teams Supervisor Incising Relationship Specialty Start Date End Date Sunday Oneill MD [address] [place] [address] PCP - General Internal Medicine 11/14/24 documented as of this encounter
--- OUTSIDE RECORDS SUMMARY | 2024-12-26 14:42 | XMS_ITS | Clinical Summary ---
Author Organization [facility] Address [address] [place] [phone] Phone Care Team Providers Care Sew Out Operator Name Role Phone Rajendra Cast Primary Care Provider [phone] Social History Tobacco Use Types Packs/Day Years Used Date Smoking Tobacco: Never Assessed Comments Unknown Sex and Gender Information Value Date Recorded Sex Assigned at Female 01/26/2020 10:49 AM EST Legal Sex Female 10:40 AM EST Gender Identity Female 01/26/2020 10:49 AM EST Sexual Orientation Straight 01/26/2020 10 :49 AM EST Plan of Treatment Not on file Medical Devices Not on file Insurance [facility] Care Teams Sew Out Operator Relationship Specialty Start Date End Date Rajendra Cast DO [address] [place] [phone] PCP - General Internal Medicine 01/26/20 Additional Source Comments The information contained in this document represents components of the legal health record. It is not the complete legal health record.[facility]
--- OUTSIDE RECORDS SUMMARY | 2024-12-26 14:42 | XMS_ITS | Clinical Summary ---
Author Organization [employer] [facility] Address [address] [place] [address] Care Team Providers Care Rn Utilization Management Um Name Role Phone Sunday Oneill MD Primary Care Prov ider Allergies Active Allergy Reactions Criticality Noted Date Comments Amoxicillin Hives 11/07/2024 Codeine 01/04/2021 Penicillins 11/07/2024 Oxycodone-Acetaminophen 11/07/2024 Medications Nutritional Supplements (Ensure) Take 1 Bottle by mouth 2 times daily. 237 mL 12 12/07/19 25 026 Active famotidine (Pepcid) 20 MG tabletIndicatio ns:Gastroparesi s Take 1 tablet (20 mg) by mouth 2 times daily. 60 tablet 11 12/27/19 25 026 Active metoclopramide (Reglan) 10 MG tabletIndicatio ns:Gastroparesi s Take 1 tablet (10 mg) by mouth 4 times daily for 10 days. 40 tablet 12/27/19 25 025 Active famotidine (Pepcid) 20 MG tabletIndicatio ns:Gastroparesi s Take 1 tablet (20 mg) by mouth 2 times daily. 60 tablet 11 12/27/19 25 025 Discontinued(Re order (will not trigger notification to Pharmacy)) metoclopramide (Reglan) 10 MG tabletIndicatio ns:Gastroparesi s Take 1 tablet (10 mg) by mouth 4 times daily for 10 days. 40 tablet 12/27/19 25 025 Discontinued(Re order (will not trigger notification to Pharmacy)) Active Problems Problem Noted Date Diagnosed Date [...] 2:24 PM EDT): Patient previously seen at [facility], she refers constant nausea/lack of appetitte, diarrhea, will refer to GI for follow up and evaluation Bipolar depression ([facility]) 11/16/2024 Encounter for medical examination to establish c are 11/14/2024 Assessment & Plan (11/14/2024 11:21 AM EDT): Last pcp visit over 6 months ago ER: fall/dizziness, Hospitalization: - PMHX: gastroparesis, IBS, Pshx: gallblader 2006, appendectomy 2023, csec x2 [phone], uteral ablation 2019, tubal ligation 2019 All: percocet, vicodin, amoxicillin Meds: - A3 LMP: 2020 Encounters Date Type Department Care Team Description 12/26/2024 11:15 AM EST Office Visit [facility] [address] [place] [address] Jaleesa Scott MD Proctitis (Primary Dx); Other irritable bowel syndrome; Gastroparesis 12/26/2024 Travel 12/15/2024 Telephone [facility] [address] [place] [address] Sunday Oneill MD Nurse Triage 12/06/2024 10:15 AM EDT Office Visit [facility] [address] [place] [address] Sunday Oneill MD Dizziness (Primary Dx); Encounter for screening mammogram for malignant neoplasm of breast; Chronic abdominal pain; Poor appetite 12/06/2024 Orders Only GENERIC EXTERNAL DATA DEPARTMENT Provider, Generic External Data 12/06/2024 Refill [facility] [address] [place] [address] Sunday Oneill MD 12/06/2024 Travel 12/06/2024 Population Health Risk Score [facility] ([facility] Department [address] [phone] Provider, Population Health Generic 12/05/2024 Telephone [facility] [address] [place] [address] Sunday Oneill MD Chart Prep 11/30/2024 Results Follow-Up [facility] [address] [place] [phone] Consuelo Roy RN Hemoglobin A1c, CBC auto differential, TSH W/Reflex to FT4, Additional followed-up results: 6 11/23/2024 Telephone [facility] [address] [place] [address] Sunday Oneill MD RV 11/18/2024 Telephone [facility] [address] [place] [address] Sunday Oneill MD 11/15/2024 Telephone [facility] [address] [place] [phone] Sunday Oneill MD Xr order 11/14/2024 10:45 AM EDT Telemedicine [facility] [address] [place] [address] Sunday Oneill MD Encounter for medical examination to establish care (Primary Dx); Chronic abdominal pain; Bipolar depression (CMS/HCC); Dietary counseling; Exercise counseling 11/14/2024 Telephone [facility] [address] [place] [address] Sunday Oneill MD Appointment Request 11/14/2024 Travel 11/09/2024 Travel 11/08/2024 Telephone [facility] [address] [place] [address] Felicia Jack FNP Results 11/07/2024 5:00 PM EDT Office Visit [facility] [address] [place] [address] Felicia Jack FNP Pain and swelling of [...] 0.5 24.9 Started: 2000 Smokeless Tobacco: Never Tobacco Cessation:Ready [...] Mass Index 17.16 12/26/2024 11:29 AM EST Plan of Treatment Upcoming Encounters Date Type Department Care Team (Late st Contact Info) Description 02/01/2025 11:15 AM EST Office Visit [facility] [address] [place], [place] [phone] Sunday Oneill MD [address] [place], [place] [phone] Health Maintenance Due Date Last Done Comments [...] 11/14/2024 SDOH Screening 11/14/2025 11/14/2024 Tobacco Screening 12/26/2025 12/26/2024 Zoster Vaccines (1 of 2) 2032 RSV [...] BETA-HYDROXYBUTYRATE Routine 12/06/2024 12:19 PM EDT Dizziness C-PEPTIDE Routine 12/06/2024 12:19 PM EDT Dizziness INSULIN AUTOANTIBODY Routine 12/06/2024 12:19 PM EDT Dizziness INSULIN Routine 12/06/2024 12:19 PM EDT Dizziness IA-2 ANTIBODY Routine 12/06/2024 12:09 PM EDT Dizziness CBC WITH AUTO DIFFERENTIAL [...] PM EDT) Hold Green Gel See Note [facility] Comment:Specimen held untest ed for 24 hours; Call to requestChemistry testing. 12/06/2024 12:1 9 PM EDT 12/06/2024 3:00 PM EDT Generic External Data Provider HISTORICAL/NON OR DERABLE LABS Final Result [facility] [address] [place] [phone] * Beta-Hydroxybutyrate (12/06/2024 12:19 PM EDT) [facility] Beta-Hydroxybut yrate 0.16 0.02 - 0.27 mmol/L [facility] Blood Venous blood specimen / Unknown 12/06/2024 12:19 PM EDT 12/06/2024 2:21 PM EDT Sunday Barry MD LAB BLOOD ORDERABL ES Final Result Performing Organization Address [facility] de Phone Number [facility] [address] [place] [phone] * Insulin (12/06/2024 12:19 PM EDT) [facility] Insulin 2 2 - 29 uU/mL [facility] Comment:This test was perfor med using the [employer] chemiluminescentmethod. Values obtained from different assay methods [...] ORDERABL ES Final Result Performing Organization Address [facility] Co de Phone Number [facility] [address] [place] [address] [phone] * Insulin Autoantibody (12/06/2024 12:19 PM EDT) [facility] Insulin Auto Antibody <0.4 <0.4 U/mL [facility] Comment:THIS TEST WAS PERFOR MED AT:[facility] [id number] [place] [address]KWDTGMARIA EUGENIA GRANT MD,PHD,BETSY Blood Venous blood specimen / Unknown 12/06/2024 12:19 PM EDT 12/06/2024 2:21 PM EDT Sunday Barry MD LAB BLOOD ORDERABL ES Final Result Performing Organization Address [facility] de Phone Number [facility] [address] [place] [phone] * C-Peptide (12/06/2024 12:19 PM EDT) Pathologist [facility] C-Peptide 0.92 0.80 - 3.85 ng/mL [facility] Comment:THIS TEST WAS PERFOR MED AT:[facility] [address] [id number] MICHAUD MD Blood Venous blood specimen / Unknown 12/06/2024 12:19 PM EDT 12/06/2024 2:21 PM EDT Sunday Barry MD LAB BLOOD ORDERABL ES Final Result Performing Organization Address [facility] [address] [place] [phone] * IA-2 Antibody (12/06/2024 12:09 PM EDT) Pathologist [facility] IA-2 Antibody <5.4 <5.4 U/mL [facility] Comment:This test was perfor med using the IA-2 Antibody HAN methodwhich is standardized against the WHO Reference Vxnwazb47/550. The reference range reported was establishedspecifically for this test method.THIS TEST WAS PERFORMED AT:[facility] [id number] [facility] [place] [address]WJNPMMARIA EUGENIA GRANT MD,PHD,BETSY Blood 12/06/2024 12:0 9 PM EDT 12/06/2024 2:21 PM EDT us Sunday Barry MD LAB BLOOD ORDERABL ES Final Result [facility] [address] [place] [phone] * (ABNORMAL) CBC auto differential (12/06/2024 12:09 PM EDT) Only the most recent of2 resultswithin the time period is included. White Blood Count 5.3 4.8 - 10.8 X10*3/uL [facility] Red Blood Count 4.04(L) 4.20 - 5.50 X10*6/uL [facility] Hemoglobin 13.3 12.0 - 16.0 g/dl [facility] Hematocrit 38.5 37.0 - 47.0 % [facility] Mean Corpuscular Volume 95.3 80.0 - 98.0 fL [facility] Mean Corpuscular Hemoglobin 32.9 27.0 - 33.0 pg [facility] Mean Corpuscular HGB Conc 34.5 31.0 - 35.0 g/dl [facility] Red Cell Distribution Width 12.6 11.0 - 16.0 % [facility] Platelet Count 158(L) 160 - 400 X10*3/uL [facility] Mean Platelet Volume 12.7(H) 9.4 - 12.3 fL [facility] Neutrophils Percent Auto 61.1 45 - 73 % [facility] Imm Gran Pct Auto 0.4 0.0 - 0.4 % [facility] Lymphocytes Percent Auto 29.6 20 - 40 % [facility] Monocytes Percent Auto 7.2 2 - 11 % [facility] Eosinophils Percent Auto 0.8 0 - 4 % [facility] Basophils Percent Auto 0.9 0 - 2 % [facility] NRBC Pct Auto 0.0 0.0 - 0.2 /100WBC [facility] Neutrophils Absolute Auto 3.2 2.0 - 8.3 x10*3/uL [facility] Imm Gran Abs Auto 0.02 0.00 - 0.03 X10*3/uL [facility] Lymphocytes Absolute Auto 1.6 1.2 - 4.9 X10*3/uL [facility] Monocytes Absolute Auto 0.4 0.1 - 1.2 X10*3/uL [facility] Eosinophils Absolute Auto 0.0 0.0 - 0.4 X10*3/uL [facility] Basophils Absolute Auto 0.1 0.0 - 0.2 X10*3/uL [facility] NRBC Abs Auto 0.000 0.0 - 0.012 X10*3/uL [facility] Blood Venous blood specimen / Unknown 12/06/2024 12:09 PM EDT 12/06/2024 2:44 PM EDT Sunday Barry MD LAB BLOOD ORDERABL ES Final Result [facility] [address] [place] [phone] * Vitamin D, 25-Hydroxy, Total, Immunoassay (11/08/2024 9:08 AM EDT) Vitamin D 25-OH Total 73.6 >30 ng/mL [facility] Comment: Health Based Reference Values*< 20 ng/mL Rumbqyctx97-45 ng/mL Insufficient> 30 ng/mL Sufficient*Radha CARREON. N [...] 9:08 AM EDT 11/08/2024 11:26 AM EDT [facility] BLOOD ORDERABLES Final Resu lt Performing Organization Address City/[facility] Co de Phone Number [facility] [address] [place] [phone] * TSH W/Reflex to FT4 (11/08/2024 9:08 AM EDT) TSH reflex Free T4 1.13 0.32 - 4.0 uIU/mL [facility] Blood Venous blood specimen / Unknown 11/08/2024 9:08 AM EDT 11/08/2024 11:26 AM EDT [facility] LAB BLOOD ORDERABLES Final Resu lt Performing Organization Address [facility] Co de Phone Number [facility] [address] [place] [phone] * Albumin, Random Urine W/Creatinine (11/08/2024 9:08 AM EDT) Creatinine, Urine 228.51 mg/dL [facility] Microalbumin Urine 22.0 mg/L [facility] Microalbum Creatinine Ratio Ur 9.6 <30 ug/mg cr [facility] Comment:Albumin/Creatinine R atio Reference Ranges: Normal: < 30 ug/mg creatinine Microalbuminuria: 30 - 300 ug/mg creatinineClinical Albuminuria: > 300 ug/mg creatinine Urine (Urine, Random) 11/08/2024 9:08 AM EDT 11/08/2024 11:14 AM EDT [facility] URINE ORDERABLES Final Resu lt Performing Organization Address [facility]/ZIP Co de Phone Number [facility] [address] [place] [phone] * Iron And Total Iron Binding Capacity (11/08/2024 9:08 AM EDT) Pathologist [facility] Iron 122 30 - 160 mcg/dL [facility] Total Iron Binding Capacity 272 228 - 428 mcg/dL [facility] Percent Iron Saturation 45 15 - 50 % [facility] Unsaturated Iron Binding 150 ug/dL [facility] Blood Venous blood specimen / Unknown 11/08/2024 9:08 AM EDT 11/08/2024 11:26 AM EDT [facility] LAB BLOOD ORDERABLES Final Resu lt Performing Organization Address [facility] Co de Phone Number [facility] [address] [place] [phone] * T3, Total (11/08/2024 9:08 AM EDT) Pathologist [facility] T3, Total 81 76 - 181 ng/dL [facility] Comment:THIS TEST WAS PERFOR MED AT:[facility] [address] [address]BVYZDDEMETRIA MICHAUD MD Blood Venous blood specimen / Unknown 11/08/2024 9:08 AM EDT 11/08/2024 11:26 AM EDT [facility] BLOOD ORDERABLES Final Resu lt Performing Organization Address [facility] Co de Phone Number [facility] [address] [place] [phone] * Hemoglobin A1c (11/08/2024 9:08 AM EDT) Pathologist [facility] Hemoglobin A1c 5.3 <6.0 % [facility] Comment:Hemoglobin A1C Refer ence Range Adults: 4.8 - 6.0 % Non diabetic: < 6.0 % Goal: < 7.0 %Additional Action Suggested: > 8.0 %Note: Hemoglobin A1c results are invalid for patients with abnormal amounts of HbF. Blood transfusions may impact the HbA1c concentration in the patient sample. Estimated Average Glucose 105 mg/dL [facility] Comment:eAG = Estimated ave rage glucose which is %A1C expressed asaverage glucose, using the formula of the Y1M-MogmkrcKknzojh Glucose study (ADAG), Diabetes Care, Vol.31,#8,Sep. 2007 Blood Venous blood specimen / Unknown 11/08/2024 9:08 AM EDT 11/08/2024 11:26 AM EDT [facility] LAB BLOOD ORDERABLES Final Resu lt Performing Organization Address [facility]/ZIP Co de Phone Number [facility] [address] [place] [phone] * Ferritin (11/08/2024 9:08 AM EDT) Ferritin 68 10 - 250 ng/mL [facility] Blood Venous blood specimen / Unknown 11/08/2024 9:08 AM EDT 11/08/2024 11:26 AM EDT [facility] LAB BLOOD ORDERABLES Final Resu lt Performing Organization Address [facility]/ZIP Co de Phone Number [facility] [address] [place] [phone] * (ABNORMAL) Comprehensive Metabolic Panel (11/08/2024 9:08 AM EDT) Sodium 142 135 - 145 mmol/L [facility] Potassium 4.5 3.3 - 5.1 mmol/L [facility] Chloride 106 96 - 108 mmol/L [facility] Carbon Dioxide 29 22 - 29 mmol/L [facility] Anion Gap 12 12 - 20 [facility] Urea Nitrogen (BUN) 13 9 - 16 mg/dL [facility] Creatinine, Serum 0.67 0.5 - 1.4 mg/dL [facility] Estimated Glomerular Filt Rate >60 [facility] Comment:Chronic Kidney Disea se: Estimated GFR < 60 mL/min/[id number] Kidney Disease: Estimated GFR < 15 mL/min/1.73m2 Glucose 95 60 - 115 mg/dL [facility] Calcium 9.8 8.4 - 10.2 mg/dL [facility] Bilirubin, Total 0.6 0.0 - 1.0 mg/dL [facility] Aspartate Amino Transferase 17 5 - 31 U/L [facility] Alanine Aminotransferase 12 0 - 31 U/L [facility] Total Protein 7.4 6.5 - 8.0 g/dL [facility] Albumin Level 5.1(H) 3.5 - 5.0 g/dL [facility] Alkaline Phosphatase 42 39 - 117 U/L [facility] Blood Venous blood specimen / Unknown 11/08/2024 9:08 AM EDT 11/08/2024 11:26 AM EDT us Felicia Jack [facility] LAB BLOOD ORDERABLES Final Resu lt [facility] [address] [place] [phone] * XR Elbow 3+ Views Right (11/08/2024 9:00 AM EDT) Anatomical Region Laterality Modality Upper Extremities, Elbow Right Radiogr aphic Imaging 11/08/2024 9:00 AM EDT Narrative 11/08/2024 9:21 AM EDT [address] [address] XRay Report Signed Patient: Ashtyn Reyes MR#: [id number] : 1980 Acct:[id number] Age/Sex: 44 / F ADM Date: 11/08/24 Loc: [facility] Attending Dr: Felicia Jack CARBOY FILLER Ordering Physician: Felicia Jack NP Date of Service: 11/08/24 Procedure(s): XR elbow RT min 3V Accession Number(s): [id number] cc: Felicia Jack NP Reason for Exam: [...] OV> 11/08/24917 DD/ 9 TD/TT: 11/08/24 0910 [employer] Estate Listing Consultant: Procedure Note Donotuseinterpreter, Image - 11/08/2024 [place] [address] XRay Report Signed Patient: Silver Reyes#: [id number] : 1980Acct:[id number] Age/Sex: 44 / FADM Date: 11/08/24 Loc: [facility] Attending Dr: Felicia Jack CARBOY FILLER Ordering Physician: Felicia Jack NP Date of Service: 11/08/24 Procedure(s): XR elbow RT min 3V Accession Number(s): [id number] cc: Felicia Jack NP Reason for Exam: [...] Yoandy Phillips MD in OV> 11/08/24917 DD/ 0900 TD/TT: 11/08/24 09 [employer] Estate List[employer] Consultant: Felicia Jack [facility] IMG XR PROCEDURES Final Result * ECG 12 lead (11/07/2024 7:00 PM EDT) Only the most recent of2 resultswithin the time period is included. Felicia Martinez FNP - 11/07/2024 7:00 PM EDT Sinus rhythm P/SC: 94/170 ms QRS: 80 ms QT/Qtc: 396/372 ms P/QRS/T axis: 140/142/145 deg Heart rate: 53 bpm Felicia Jack [facility] ECG ORDERABLES Final Result from Last 3 Months Insurance [facility] C3 Care Teams Rn Utilization Management Um Relationship Specialty Start Date End Date Sunday Oneill MD [address] [place] [phone] PCP - General Internal Medicine 11/14/24
[2024-12-26 15:27] LABS: Amylase 35 U/L (28-100); Lipase 23 U/L (8-78)
== END 2024-12-26 12:34 | disposition home or self-care (01) ==
LOC: HO.CHCLDS 12:33
PROVIDERS: Visit Provider Internal Medicine
DX: K58.8 Other irritable bowel syndrome (principal); K62.89 Other specified diseases of anus and rectum
CPT/HCPCS: 36415; 82150; 83690; 85652; 86140